=== PATIENT | female | born 1980 | race Two or more races ===

== ENCOUNTER 2017-01-21 15:31 | Emergency (ER) | payer MEDICAID ==
[2017-01-21 15:47] VITALS: BP 152/102
--- NOTE | 2017-01-21 16:17 | ED Physician Documentation ---
History of Present Illness - Stated complaint Stated Complaint: RT LE PAIN - Chief complaint Chief Complaint: Ext Problem - History obtained from History obtained from: Patient - History of Present Illness Timing: Other (About 9 months ago she had a fall and developed pain in the right low back radiating as a pulling sensation into the right hamstring area. This is been going on on and off ever since. She had nerve conduction studies that were normal per her. Pains been worse over the last few days after increased movement at home. 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 - Present Medications Home Medications: Ambulatory Orders Medication Instructions Recorded Confirmed Albuterol Sulfate [Proventil Hfa] 1 puffs PO DAILY 07/11/14 01/21/17 Cyclobenzaprine [Flexeril] 10 mg PO TID PRN #20 tablet 01/21/17 predniSONE [Deltasone] 20 mg PO [id number] #21 tab 01/21/17 - Allergies Allergies/Adverse Reactions: Allergies Allergy/AdvReac Type Severity Reaction Status Date / Time No Known Drug Allergies Allergy Verified 01/21/17 16:06 - Social History Does the pt smoke?: No Smoking Status: Never smoker Does the pt drink ETOH?: No Does the pt have substance abuse?: No PD ED PE NORMAL - Vitals Vital signs reviewed: Yes - General General: Alert and oriented X 3, No acute distress - Extremities Extremities: Other (Tender in the right sciatic notch, there is no tenderness of the leg itself. She is slightly diminished sensation over the right lateral calf compared to the left and a diminished but not absent Babinski reflex on the right.) - Neuro Neuro: Alert and oriented X 3, Normal speech - Psych Psych: Normal mood, Normal affect Results - Vitals Vitals: Vital Signs - 24 hr 01/21/17 15:45 Temperature 36.5 C Heart Rate 116 H Respiratory 18 Rate Blood Pressure 152/102 H O2 Saturation 100 Oxygen O2 Source Room air - Labs Labs: Laboratory Tests 01/21/17 16:18 POC Whole Bld Glucose 105 H PD MEDICAL DECISION MAKING - ED course ED course: She presents with signs and symptoms of a chronic lumbar radiculopathy on the right. No evidence of cauda equina or infection. Departure - Departure Disposition: 01 Home, Self Care Clinical Impression: Sciatica Condition: Good Record reviewed to determine appropriate education?: Yes Instructions: ED Sciatica Prescriptions: predniSONE [Deltasone] 20 mg PO [id number] #21 tab Cyclobenzaprine [Flexeril] 10 mg PO TID PRN #20 tablet PRN Reason: Pain Comments: Call your doctor to arrange a follow-up appointment, make the next available appointment. In the interim, return anytime if worse or if new symptoms develop. Your blood pressure was elevated today on check into the emergency department. This does not mean that you have hypertension, it is a common phenomenon to come to the emergency department and have elevated blood pressure. I recommend that she see her primary care physician within the week to have it rechecked when you are feeling better.
== END 2017-01-21 16:51 | disposition home or self-care (01) ==
LOC: ED 15:31
DX: M54.41 Lumbago with sciatica, right side (principal); R03.0 Elevated blood-pressure reading, without diagnosis of hypertension
CPT/HCPCS: 99283

== ENCOUNTER 2017-04-17 10:31 | Outpatient (CLI) | payer MEDICAID ==
--- NOTE | 2017-04-17 12:58 | XRAY Report ---
FOUR-VIEW LEFT KNEE: 04/17/2017 CLINICAL INDICATION: Pain. FINDINGS: AP, lateral, bilateral oblique views of the left knee demonstrate moderate osteoarthritis. There is no evidence of acute fracture or dislocation. No effusion is present. IMPRESSION: MODERATE OSTEOARTHRITIS. JOB #: [id number] EXT JOB #:[id number]
== END 2017-04-17 10:32 | disposition home or self-care (01) ==
LOC: DI.S 10:31
PROVIDERS: ATTEND Nurse Practitioner Family
DX: M17.12 Unilateral primary osteoarthritis, left knee (principal)

== ENCOUNTER 2017-07-28 15:05 | Outpatient (CLI) | payer MEDICAID ==
--- NOTE | 2017-07-28 22:19 | MRI Report ---
EXAM: LEFT KNEE MRI WITHOUT CONTRAST EXAM DATE: 07/28/2017 04:49 PM. CLINICAL HISTORY: Left knee pain and swelling. COMPARISON: Left knee radiography from 04/17/2017. TECHNIQUE: Multiplanar, multisequence T1-weighted and fluid-sensitive sequences of the knee without c ontrast. Other: None. FINDINGS: Exam is technically limited due to patient imaging characteristics. Bones and articular cartilage: Marginal osteophytes at the femoral condyles, tibial plateau, and tsai lla. Grade 3-4 chondromalacia at the medial femoral condyle. Subchondral marrow edema at the central aspect of the medial femoral condyle. Grade 3-4 chondromalacia at the medial tibial plateau. Focal fu ll-thickness articular cartilage defect at the lateral tibial plateau. Grade 2 chondromalacia at the lateral femoral condyle. Small 3 mm focus of articular cartilage delamination injury at the lateral p atellar facet. Focal grade 3 chondromalacia at the femoral trochlear groove. No patellar subluxation. Medial Meniscus: There is a vertically-oriented extensive radial tear at the lateral margin of the po sterior horn medial meniscus and extending into the posterior meniscal root ligament. Degenerative fr ee edge fraying of the medial meniscus. The medial meniscal body is partially extruded medially from the medial joint compartment. Degenerative signal throughout the medial meniscus. Lateral Meniscus: The lateral meniscus is intact. Cruciate Ligaments: The anterior and posterior cruciate ligaments are intact. Collateral Ligaments: The medial collateral and lateral collateral ligamentous structures are intact. Tendons: The quadriceps, patellar, semimembranosus, and popliteus tendons are unremarkable. Musculature: No edema or fatty atrophy. Other: Small to moderate-sized joint effusion. Small ganglion or synovial cyst adjacent to the distal end of the semimembranosus tendon. No Liang's cyst. No loose bodies. The medial and lateral retinac glen are intact. The subcutaneous tissues and fat pads are unremarkable. IMPRESSION: 1. Tricompartmental osteoarthritis which is most significant at the medial compartment. 2. Vertically-oriented, extensive radial tear at the lateral margin of the posterior horn medial meni scus and extending into the posterior meniscal root ligament. Degenerative free edge fraying and dege nerative intrasubstance signal throughout the medial meniscus. The medial meniscal body is partially extruded medially from the medial joint compartment. Small to moderate-sized joint effusion. 3. Small ganglion or synovial cyst adjacent to the distal end of the semimembranosus tendon. [facility] Referring Provider Line: [phone] SITE ID: [id number]
== END 2017-07-28 15:06 | disposition home or self-care (01) ==
LOC: DI 15:05
PROVIDERS: ATTEND Orthopaedic Surgery
DX: M17.12 Unilateral primary osteoarthritis, left knee (principal); S83.242A Other tear of medial meniscus, current injury, left knee, initial encounter; M25.462 Effusion, left knee

== ENCOUNTER 2017-11-30 16:29 | Emergency (ER) | payer MEDICAID ==
[2017-11-30] MEDS ORDERED: KETOROLAC 60 MG/2 ML VIAL IM STA (17:06)
--- NOTE | 2017-11-30 17:16 | ED Physician Documentation ---
PD HPI BACK PAIN - Stated complaint Stated Complaint: BK PX - Chief complaint Chief Complaint: Back Pain - History obtained from History obtained from: Patient - History of Present Illness Timing - onset: How many months ago (several) Timing - details: Waxing and waning Location: Lower Quality: Pain, Similar to prior episodes Associated symptoms: No: Fever, Weakness, Numbness, Incontinent of urine Worsened by: Movement Recently seen: Clinic (Was seen in Ortho Clinic two days ago.) - Additional information Additional information: The patient is a 37-year-old female who presents with low back pain that has been waxing and waning for the past several months. She describes it as "tight " with tingling in her legs, and pulling of the muscles in her legs. She denies fever, numbness, weakness, or urinary incontinence. She reports history of falling in April 2017, and has had back pain and left knee pain since that time. She has been seeing orthopedics and has received a cortisone injection for her left knee pain. She was seen in orthopedic clinic 2 days ago and states she is being referred to a business taxes specialist. 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 - Present Medications Home Medications: Ambulatory Orders Medication Instructions Recorded Confirmed Naproxen [Naprosyn] 500 mg PO BID PRN #30 tablet 11/30/17 - Allergies Allergies/Adverse Reactions: Allergies Allergy/AdvReac Type Severity Reaction Status Date / Time No Known Drug Allergies Allergy Verified 11/30/17 16:35 - Social History Does the pt smoke?: No Smoking Status: Never smoker Does the pt drink ETOH?: No Does the pt have substance abuse?: Yes Substance Use and Type: Marijuana - Immunizations Immunizations are current?: Yes PD ED PE NORMAL - Vitals Vital signs reviewed: Yes (hypertensive) - General General: Alert and oriented X 3, Other (Morbidly obese.) - HEENT HEENT: Atraumatic, Moist mucous membranes - Neck Neck: No bony TTP, No JVD - Cardiac Cardiac: RRR, No murmur - Respiratory Respiratory: No respiratory distress, Clear bilaterally - Abdomen Abdomen: Soft, Non tender - Back Back: No CVA TTP, No spinal TTP, Other (Tenderness to palpation in the paralumbar musculature bilaterally.) - Derm Derm: No rash - Extremities Extremities: No calf tenderness / cord, Other (Wearing a compression wrap around the left knee. It is difficult to determine if there is swelling of the leg due to the girth of her legs. There is no appreciable difference from right to left.) - Neuro Neuro: Alert and oriented X 3, No motor deficit, No sensory deficit Results - Vitals Vitals: Oxygen O2 Source Room air PD MEDICAL DECISION MAKING - ED course Complexity details: reviewed old records, re-evaluated patient, considered differential, d/w patient ED course: The patient's presentation is consistent with acute exacerbation of chronic low back pain. There is no evidence of neurologic deficit on physical examination, and her presentation does not suggest spinal stenosis, epidural abscess, or cauda equina syndrome. Treatment in the emergency department included administration of ketorolac 60 mg IM. The patient reported improvement of her symptoms following this treatment. She is being discharged with prescription for Naprosyn. I discussed with her symptomatic treatment and outpatient follow- up, as well as potentially worrisome signs or symptoms that should prompt reevaluation in the emergency department. Departure - Departure Disposition: 01 Home, Self Care Clinical Impression: Low back pain Qualifiers: Back pain laterality: bilateral Sciatica presence: unspecified whether sciatica present Condition: Stable Instructions: ED Low Back Pain Injury Follow-Up: Misty Little ARNP [Primary Care Provider] - Prescriptions: Naproxen [Naprosyn] 500 mg PO BID PRN #30 tablet PRN Reason: Pain Comments: Apply ice pack to your lower back intermittently for the next 3 or 4 days. You can use Naprosyn as prescribed if needed for pain. Follow up with your primary physician within 2 weeks. Continue to follow-up with orthopedics as planned. Return to the emergency department if you develop increasing pain, urinary incontinence, or otherwise worsening symptoms. Discharge Date/Time: 11/30/17 18:04
[2017-11-30 17:51] VITALS: BP 136/82
== END 2017-11-30 18:04 | disposition home or self-care (01) ==
LOC: ED 16:29
DX: M54.5 Low back pain (principal); G89.29 Other chronic pain; M25.562 Pain in left knee; E66.01 Morbid (severe) obesity due to excess calories; Z68.43 Body mass index [BMI] 50.0-59.9, adult
CPT/HCPCS: 96372; 99283

== ENCOUNTER 2017-12-05 06:08 | Emergency (ER) | payer MEDICAID ==
[2017-12-05] MEDS ORDERED: DEXAMETHASONE 10 MG/ML VIAL IM STA (06:16)
[2017-12-05] MEDS ORDERED: KETOROLAC 60 MG/2 ML VIAL IM STA (06:16)
[2017-12-05] MEDS ORDERED: CYCLOBENZAPRINE 10 MG TABLET PO STA (06:16)
--- NOTE | 2017-12-05 06:19 | ED Physician Documentation ---
PD HPI BACK PAIN - Stated complaint Stated Complaint: LOWER BACK PX - Chief complaint Chief Complaint: Back Pain - History obtained from History obtained from: Patient, Family - History of Present Illness Timing - onset: Chronic Timing - duration: Months Timing - details: Gradual onset Pain level max: 10 Pain level now: 10 Location: Lower, Left Quality: Pain, Spasm, Sharp, Similar to prior episodes Associated symptoms: No: Fever, Weakness, Numbness, Incontinent of urine, Unable to urinate, Hematuria, Incontinent of stool Improves with: Rest Worsened by: Movement Contributing factors: No: Anticoagulated, Cancer, IVDA Similar symptoms before: Diagnosis (back pain, "possible pinched nerve") Recently seen: Other (seen here 5 days ago, rx naproxen but has not filled it yet. Seen at [facility] days ago and given oxycodone, states not helping. States is being referred to a digital campaign specialist.) Review of Systems Constitutional: denies: Fever, Chills Ears: denies: Ear pain Nose: denies: Rhinorrhea / runny nose, Congestion Throat: denies: Sore throat Cardiac: denies: Chest pain / pressure Respiratory: denies: Cough GI: denies: Abdominal Pain, Nausea, Vomiting, Diarrhea : denies: Dysuria, Frequency, Hesitancy, Incontinent, Now EGA Skin: denies: Rash Musculoskeletal: denies: Neck pain Neurologic: denies: Focal weakness, Numbness PD PAST MEDICAL HISTORY - Past Medical History Past Medical History: Yes Respiratory: Asthma Psych: Depression, Anxiety Musculoskeletal: Chronic back pain - Past Surgical History 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, 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 - Present Medications Home Medications: Ambulatory Orders Medication Instructions Recorded Confirmed Naproxen [Naprosyn] 500 mg PO BID PRN #30 tablet 11/30/17 12/05/17 Cyclobenzaprine HCl 1 tab PO TID PRN 12/05/17 12/05/17 Cyclobenzaprine [Flexeril] 10 mg PO TID PRN #20 tablet 12/05/17 Meloxicam 7.5 mg PO DAILY PRN 12/05/17 12/05/17 predniSONE [Deltasone] 10 mg PO [id number] #42 tab 12/05/17 - Allergies Allergies/Adverse Reactions: Allergies Allergy/AdvReac Type Severity Reaction Status Date / Time No Known Drug Allergies Allergy Verified 12/05/17 06:16 - Social History Does the pt smoke?: No Smoking Status: Never smoker Does the pt drink ETOH?: No Does the pt have substance abuse?: Yes - Immunizations Immunizations are current?: Yes PD ED PE NORMAL - Vitals Vital signs reviewed: Yes - General General: Alert and oriented X 3, Other (morbidly obese female. tearful. ) - HEENT HEENT: Moist mucous membranes - Neck Neck: Supple, no meningeal sign - Cardiac Cardiac: RRR - Respiratory Respiratory: No respiratory distress, Clear bilaterally - Abdomen Abdomen: Soft, Non tender, Non distended - Back Back: No spinal TTP, Other (No midline tenderness to palpation or percussion. No spasm felt.) - Derm Derm: Warm and dry - Extremities Extremities: Normal ROM s pain, No edema, No calf tenderness / cord, Other ( normal bilateral lower extremity patellar and ankle jerk reflexes. Normal great toe extension bilaterally) - Neuro Neuro: Alert and oriented X 3, No motor deficit, No sensory deficit Results - Vitals Vitals: Vital Signs - 24 hr 12/05/17 12/05/17 06:12 06:40 Temperature 36.6 C Heart Rate 66 84 Respiratory 24 18 Rate Blood Pressure 137/107 H 118/59 L O2 Saturation 97 98 Oxygen O2 Source Room air PD MEDICAL DECISION MAKING - ED course Complexity details: reviewed old records, re-evaluated patient, considered differential (no cauda equina, no spinal epidural abscess, no fracture, no aortic dissection or evidence of aneursym rupture), d/w patient ED course: Patient is a 37-year-old female who presents to the emergency department with acute on chronic back pain. Has not filled her prescriptions from her prior ED visit. Feels better after Toradol, Flexeril and dexamethasone here. Will place on a steroid taper to see if this improves her symptoms. We will also prescribe a muscle relaxant for home. She denies taking any other medications and denies any allergies to medications. Will have her follow-up with her doctor for further evaluation and care. No evidence of cauda equina, epidural abscess or fracture. Patient counseled regarding signs and symptoms for which I believe and urgent re-evaluation would be necessary. Patient with good understanding of and agreement to plan and is comfortable going home at this time This document was made in part using voice recognition software. While efforts are made to proofread this document, sound alike and grammatical errors may occur. Departure - Departure Disposition: 01 Home, Self Care Clinical Impression: Low back pain Qualifiers: Chronicity: acute Back pain laterality: left Sciatica presence: without sciatica Qualified Code(s): M54.5 - Low back pain Condition: Good Instructions: ED Sprain Strain Lumbar Follow-Up: Misty Little ARNP [Primary Care Provider] - Within 1 week Prescriptions: Cyclobenzaprine [Flexeril] 10 mg PO TID PRN #20 tablet PRN Reason: Spasms predniSONE [Deltasone] 10 mg PO [id number] #42 tab Comments: Fill the medications as previously prescribed. Follow up with your doctor for further care. Return if you worsen.
[2017-12-05 07:15] VITALS: BP 120/60
== END 2017-12-05 07:15 | disposition home or self-care (01) ==
LOC: ED 06:08
DX: M54.5 Low back pain (principal); G89.29 Other chronic pain; E66.01 Morbid (severe) obesity due to excess calories
CPT/HCPCS: 96372; 99283; A9270

== ENCOUNTER 2017-12-10 12:52 | Outpatient (CLI) | payer MEDICAID ==
--- NOTE | 2017-12-11 15:25 | MRI Report ---
EXAM: MRI LUMBAR SPINE WITHOUT CONTRAST EXAM DATE: 12/10/2017 01:36 PM. CLINICAL HISTORY: Back pain, lumbar, with radiculopathy. Low back pain radiating around the left late ral area into the left calf. COMPARISON: Lumbar spine plain films 07/15/2015. TECHNIQUE: Multiplanar, multisequence T1-weighted and fluid-sensitive sequences of the lumbar spine f rom T12 to S1 without contrast. Other: None. FINDINGS: Spinal Cord: The conus terminates at T12-L1. Soft tissue mass is seen within the anterior spinal canal in the midline and to the left of midline. This extends from the T12-L1 level through the L2 inferior endplate. This measures 60 x 10 x 13 mm. T he lesion demonstrates subtle mild decreased T1 and increased T2/STIR signal relative to the spinal c ord. Mass effect on the conus medullaris and proximal cauda equina nerve roots is seen. Cauda equina nerve roots are displaced posteriorly and to the right. The mass appears to remain within the thecal sac, not exiting with nerve roots. Caudal to this, cauda equina nerve roots within the lower lumbar thecal sac are unremarkable. Alignment: No scoliosis or spondylolisthesis. Bone Marrow: A transitional vertebrae is seen at the lumbosacral junction. This is consistent with pa rtial lumbarization of S1 bilaterally. Hypoplastic S1-S2 vertebral disk level and facet joints are pr esent. No gross fractures or bone lesions. No bone marrow edema. Note is made of a small, 5 mm, heman gioma superiorly in the T12 vertebral body. Disk Levels/Facets: T11-T12: Evaluated on sagittal series. Mild dorsal and ventral disk bulge is seen. Effacement of the thecal sac is noted. Mild central canal stenosis. T12-L1: Unremarkable. L1-L2: Unremarkable. L2-L3: Unremarkable. L3-L4: Unremarkable. L4-L5: Unremarkable. Mild degenerative facet change. L5-S1: Moderate degenerative facet change is seen. Effacement of exiting left L5 nerve root within th e foramen is seen, with mild foraminal stenosis. Musculature: Normal. No edema or fatty atrophy. Other: The partially visualized retroperitoneum is unremarkable. IMPRESSION: 1. 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 This demonstrates isoin tense to slightly hypointense T1 signal. T2/STIR signal is mildly hyperintense to brain parenchyma. T he mass extends from T12-L1 through the L2 inferior endplate level. Mass measures 60 x 10 x 13 mm bebeto tered in the anterior thecal sac to the left of midline. Mass effect on the tip of the conus medullar is and proximal cauda equina nerve roots is seen. Differential considerations would include neoplasm such as myxopapillary ependymoma, nerve sheath tumor, metastatic disease, and meningioma. Further brendon luation with postcontrast MRI of the lumbar spine would be of value. Additionally screening of the ne ural axis with MRI of the brain, cervical spine, and thoracic spine without and with contrast would b e of value. 2. Transitional vertebrae is seen at the lumbosacral junction. This is consistent with partial lumbar ization of S1. 3. Mild scattered spondylosis. -T11-T12: Mild central canal stenosis. -L4-L5: Mild degenerative facet change. -L5-S1: Moderate degenerative facet change. Left mild foraminal stenosis. Critical result: The findings are discussed with referring physician, Dr. Kristine Ruiz, on 12/11/2017 at 1451 hrs. [facility] Referring Provider Line: [phone] SITE ID: [id number]
== END 2017-12-10 12:53 | disposition home or self-care (01) ==
LOC: DI 12:52
PROVIDERS: ATTEND Orthopaedic Surgery
DX: M54.16 Radiculopathy, lumbar region (principal); M48.9 Spondylopathy, unspecified
CPT/HCPCS: 72148

== ENCOUNTER 2017-12-15 12:45 | Emergency (ER) | payer MEDICAID ==
[2017-12-15] MEDS ORDERED: MORPHINE 10 MG/ML VIAL IM STA (13:42)
--- NOTE | 2017-12-15 13:45 | ED Physician Documentation ---
PD HPI BACK PAIN - Stated complaint Stated Complaint: LOW BACK/L LEG PX - Chief complaint Chief Complaint: Back Pain - History obtained from History obtained from: Patient - History of Present Illness Timing - onset: How many weeks ago (several weeks) Timing - duration: Weeks (several weeks ago) Timing - details: Gradual onset Pain level max: 8 Pain level now: 8 Location: Mid, Lower, Right, Left Quality: Pain, Spasm, Similar to prior episodes Associated symptoms: No: Fever, Weakness, Numbness, Incontinent of urine, Unable to urinate, Hematuria Improves with: Rest Worsened by: Movement Similar symptoms before: Diagnosis (MRI recently showed a mass in the spinal column.) Recently seen: Clinic (orthopedics recently) - Additional information Additional information: States continued pain and her pain medications are not helping. 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 - Present Medications Home Medications: Ambulatory Orders Medication Instructions Recorded Confirmed Naproxen [Naprosyn] 500 mg PO BID PRN #30 tablet 11/30/17 12/05/17 Cyclobenzaprine HCl 1 tab PO TID PRN 12/05/17 12/05/17 Cyclobenzaprine [Flexeril] 10 mg PO TID PRN #20 tablet 12/05/17 Meloxicam 7.5 mg PO DAILY PRN 12/05/17 12/05/17 predniSONE [Deltasone] 10 mg PO [id number] #42 tab 12/05/17 Hydrocodone/Acetaminophen 1 - 2 each PO Q6H PRN #14 tablet 12/15/17 [Hydrocodon-Acetaminophen 5-325] - Allergies Allergies/Adverse Reactions: Allergies Allergy/AdvReac Type Severity Reaction Status Date / Time No Known Drug Allergies Allergy Verified 12/15/17 12:59 - Social History Does the pt smoke?: No Smoking Status: Never smoker Does the pt drink ETOH?: No Does the pt have substance abuse?: Yes - Immunizations Immunizations are current?: Yes PD ED PE NORMAL - Vitals Vital signs reviewed: Yes - General General: Alert and oriented X 3, Other (appears in pain) - HEENT HEENT: Moist mucous membranes, Pharynx benign - Neck Neck: Supple, no meningeal sign, No bony TTP - Cardiac Cardiac: RRR - Respiratory Respiratory: No respiratory distress, Clear bilaterally - Abdomen Abdomen: Soft, Non tender, Non distended - Back Back: No spinal TTP, Other (No midline tenderness palpation. Paraspinal tenderness bilaterally) - Derm Derm: Warm and dry - Extremities Extremities: Other (normal bilateral lower extremity patellar and ankle jerk reflexes. Normal great toe extension bilaterally) - Neuro Neuro: Alert and oriented X 3, No motor deficit, No sensory deficit (No saddle anesthesia) Results - Vitals Vitals: Vital Signs - 24 hr 12/15/17 12/15/17 12:53 14:52 Temperature 37 C Heart Rate 108 H 104 H Respiratory 20 16 Rate Blood Pressure 148/93 H 130/67 O2 Saturation 94 97 Oxygen O2 Source Room air PD MEDICAL DECISION MAKING - ED course Complexity details: reviewed old records (Recent MRI), re-evaluated patient, considered differential (no cauda equina, no spinal epidural abscess, no fracture, no aortic dissection or evidence of aneursym rupture), d/w patient ED course: Patient is a 37-year-old female presents to the emergency department with chronic back pain. Pain is not well controlled with her medications at home. She was given pain medications in the emergency department and does feel significantly better. She is scheduled to have a repeat MRI after the results of her last MRI. She has also been referred to [facility] for further care. She is comfortable with increasing her pain medication at home and following up closely with her doctor. No neurological deficits. Patient counseled regarding signs and symptoms for which I believe and urgent re-evaluation would be necessary. Patient with good understanding of and agreement to plan and is comfortable going home at this time This document was made in part using voice recognition software. While efforts are made to proofread this document, sound alike and grammatical errors may occur. - Sepsis Event Vital Signs: Vital Signs - 24 hr 12/15/17 12/15/17 12:53 14:52 Temperature 37 C Heart Rate 108 H 104 H Respiratory 20 16 Rate Blood Pressure 148/93 H 130/67 O2 Saturation 94 97 Oxygen O2 Source Room air Departure - Departure Disposition: 01 Home, Self Care Clinical Impression: Low back pain Qualifiers: Chronicity: acute Back pain laterality: bilateral Sciatica presence: without sciatica Qualified Code(s): M54.5 - Low back pain Condition: Good Instructions: ED Low Back Pain Injury Follow-Up: Misty Little ARNP [Primary Care Provider] - Within 3 Days Kristine Ruiz MD [Provider Admit Priv/Credential] - Within 3 Days Prescriptions: Hydrocodone/Acetaminophen [Hydrocodon-Acetaminophen 5-325] 1 - 2 each PO Q6H PRN #14 tablet PRN Reason: pain Comments: It is very important that you follow-up with your doctor and orthopedics for further care and to ensure that you receive your next MRI urgently. Return if you worsen. Do not drink alcohol or drive while on narcotic pain medicine. Note that many narcotic pain relievers also contain tylenol/acetaminophen. Please ensure that your total dose of acetaminophen from all sources does not exceed 3 grams (3000mg) per day. You may constipated on this medication, take a stool softener such as "Colace" twice a day while you are on it. Also recommend a otcc-ncz-ngequen laxative such as senna or MiraLAX any day that you do not have a bowel movement. If you received narcotic pain medication in the emergency department, do not drive or operate machinery for the next 24 hours. Discharge Date/Time: 12/15/17 14:52
[2017-12-15] MEDS ORDERED: HYDROcod/ACETAM 5/325 MG TABLET PO STA (14:38)
[2017-12-15] MEDS ORDERED: diazePAM 5 MG TABLET PO STA (14:38)
[2017-12-15 14:53] VITALS: BP 130/67
== END 2017-12-15 14:52 | disposition home or self-care (01) ==
LOC: ED 12:45
DX: M54.5 Low back pain (principal)
CPT/HCPCS: 96372; 99283; A9270

== ENCOUNTER 2017-12-18 08:00 | Outpatient (CLI) | payer MEDICAID ==
[2017-12-18 13:30] LABS: CREATININE 0.5 mg/dL (0.4-1.0)
== END 2017-12-18 08:01 ==
LOC: LAB.WCP 08:00
PROVIDERS: ATTEND Nurse Practitioner Family
DX: Z01.812 Encounter for preprocedural laboratory examination (principal)
CPT/HCPCS: 36415; 82565

== ENCOUNTER 2018-01-01 20:59 | Emergency (ER) | payer MEDICAID ==
--- NOTE | 2018-01-01 22:42 | ED Physician Documentation ---
PD HPI BACK PAIN - Stated complaint Stated Complaint: BACK/LT LEG PX - Chief complaint Chief Complaint: Back Pain - History obtained from History obtained from: Patient - History of Present Illness Timing - onset: How many weeks ago (several weeks ago) Timing - duration: Weeks Timing - details: Still present, Constant, Waxing and waning Pain level now: 8 Location: Lower, Left Quality: Pain, Spasm Associated symptoms: Numbness (episodic right inguinal numbness). No: Fever, Weakness, Incontinent of urine, Unable to urinate, Incontinent of stool Improves with: Rest, Position Worsened by: Movement Similar symptoms before: Work up / diagnostics (MRI earlier this month revealed soft tissue mass within anterior spinal canal T12-L1 with mass effect on conus medullaris and proximal cauda equina nerve roots) Recently seen: Emergency Dept - Additional information Additional information: c/o worsening low back pain since earlier today. She has had similar back pain for several weeks and had MRI earlier this month with findings as noted above. She has ibuprofen and meloxicam but inadequate relief with these. She has run out of hydrocodone. Has MRI with contrast scheduled for tomorrow. Also notes LLE swelling x few days Review of Systems Constitutional: denies: Fever, Chills, Sweats : denies: Unable to Void, Incontinent Musculoskeletal: reports: Back pain, Extremity swelling Neurologic: reports: Numbness (episodic right inguinal numbness earlier today, but resolved at time of this H+P). 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 - Present Medications Home Medications: Ambulatory Orders Medication Instructions Recorded Confirmed Naproxen [Naprosyn] 500 mg PO BID PRN #30 tablet 11/30/17 12/05/17 Cyclobenzaprine [Flexeril] 10 mg PO TID PRN #20 tablet 12/05/17 Hydrocodone/Acetaminophen 1 - 2 each PO Q6HR PRN #14 tablet 01/02/18 [Hydrocodon-Acetaminophen 5-325] diazePAM [Valium] 5 mg PO TID PRN #15 tablet 01/02/18 - Allergies Allergies/Adverse Reactions: Allergies Allergy/AdvReac Type Severity Reaction Status Date / Time No Known Drug Allergies Allergy Verified 01/02/18 08:34 - Social History Does the pt smoke?: No Smoking Status: Never smoker Does the pt drink ETOH?: No Does the pt have substance abuse?: Yes Substance Use and Type: Marijuana - Immunizations Immunizations are current?: Yes - POLST Patient has POLST: No PD ED PE NORMAL - Vitals Vital signs reviewed: Yes - General General: Alert and oriented X 3, Well developed/nourished (obese), Other ( appears to be in painful distress, tearful at times. standing at bedside (says pain sometimes worse with lying down, but that if she finds a comfortable position lying down, it is very difficult to stand back up and thus she prefers to stand at this time)) - Back Back: No spinal TTP - Derm Derm: Normal color, Warm and dry - Extremities Extremities: No edema - Neuro Neuro: No motor deficit, No sensory deficit Results - Vitals Vitals: Vital Signs - 24 hr 01/01/18 01/02/18 01/02/18 21:09 01:23 01:27 Temperature 36.8 C Heart Rate 122 H 100 98 Respiratory 20 15 16 Rate Blood Pressure 155/120 H 98/46 L 118/72 O2 Saturation 100 98 98 Oxygen O2 Source Room air PD MEDICAL DECISION MAKING - ED course Complexity details: reviewed old records, reviewed results, re-evaluated patient , considered differential, d/w patient - Sepsis Event Vital Signs: Vital Signs - 24 hr 01/01/18 01/02/18 01/02/18 21:09 01:23 01:27 Temperature 36.8 C Heart Rate 122 H 100 98 Respiratory 20 15 16 Rate Blood Pressure 155/120 H 98/46 L 118/72 O2 Saturation 100 98 98 Oxygen O2 Source Room air Departure - Departure Disposition: 01 Home, Self Care Clinical Impression: Sciatica Qualifiers: Laterality: left Qualified Code(s): M54.32 - Sciatica, left side Condition: Good Instructions: ED Sciatica Follow-Up: Misty Little ARNP [Primary Care Provider] - Prescriptions: Hydrocodone/Acetaminophen [Hydrocodon-Acetaminophen 5-325] 1 - 2 each PO Q6HR PRN #14 tablet PRN Reason: Pain diazePAM [Valium] 5 mg PO TID PRN #15 tablet PRN Reason: Spasms Discharge Date/Time: 01/02/18 01:41
[2018-01-01] MEDS: HYDROmorphone 1 MG/ML CARPUJECT IM STA (23:26)
[2018-01-01] MEDS: diazePAM 5 MG TABLET PO STA (23:26)
--- NOTE | 2018-01-02 00:30 | Ultrasound Report ---
Procedure Date: 01/01/2018 Accession Number: [id number] / [id number] Procedure: US - Duplex Ext Veins Left CPT Code: FULL RESULT: EXAM: LEFT LOWER EXTREMITY VENOUS ULTRASOUND EXAM DATE: 01/01/2018 11:38 PM. CLINICAL HISTORY: Left leg swelling without injury. COMPARISON: None. TECHNIQUE: Real-time sonographic vascular imaging was performed by the food sampler through the lower extremity utilizing both color-flow and Doppler spectral analysis. Multiple lead generation representative static images were saved for review. FINDINGS: Common Femoral Vein (CFV): Normal. CFV-GSV Junction: Normal. Profunda Femoral Vein (PFV): Normal. Femoral Vein (FV) Prox: Normal. Femoral Vein (FV) Mid: Normal. Femoral Vein (FV) Dist: Normal. Popliteal Vein: Normal. Posterior Tibial Veins: Normal where seen. Peroneal Veins: Normal where seen. Other: None. IMPRESSION: No evidence for left leg deep venous thrombosis. RADIA
[2018-01-02 01:28] VITALS: BP 118/72
[2018-01-02] MEDS: HYDROcod/ACETAM 5/325 MG TABLET PO STA (01:40)
== END 2018-01-02 01:41 | disposition home or self-care (01) ==
LOC: ED 20:59
DX: M54.32 Sciatica, left side (principal); G89.29 Other chronic pain
CPT/HCPCS: 93971; 96372; 99283; A9270; J1170

== ENCOUNTER 2018-01-02 08:03 | Outpatient (CLI) | payer MEDICAID ==
[~2018-01-02 08:03] MED LIST: GADOBUTROL 10 MMOL/10 ML VIAL ONE
[2018-01-02] MEDS ORDERED: GADOBUTROL 15 MMOL/15 ML VIAL ONE (10:55)
--- NOTE | 2018-01-02 15:41 | MRI Report ---
Procedure Date: 01/02/2018 Accession Number: [id number] / [id number] Procedure: MRI - Lumbar Spine W/WO CPT Code: FULL RESULT: EXAM: MRI LUMBAR SPINE WITHOUT AND WITH CONTRAST EXAM DATE: 01/02/2018 11:24 AM. CLINICAL HISTORY: 37-year-old female. BACK PAIN, LUMBAR, WITH RADICULOPATHY. COMPARISONS: MR lumbar spine 12/10/2017. TECHNIQUE: Multiplanar, multisequence T1-weighted and fluid-sensitive sequences of the lumbar spine from T12 to S1 before and after administration of intravenous contrast. Other: None. IV contrast: 13.5 mL Gadavist. FINDINGS: Neurologic structures/central canal: This is a follow-up contrast-enhanced study to better assess the lesion seen in the lumbar central canal. The conus terminates at L1 level Conus medullaris is unremarkable. 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 The maximal craniocaudal extent is approximately 6.1 cm., Which is similar to prior study. Transversely the lesion fills the central canal with maximal dimensions approximately 13 x 11 mm (series 601 image 10). On postcontrast sequences the lesion enhances primarily peripherally with a more confluent area of enhancement along its superior margin (for example series 901 image 17). No other abnormal enhancement in the visualized portion of the spine. Alignment: No scoliosis or spondylolisthesis. Bone Marrow: Transitional lumbosacral anatomy is again noted to partially lumbarized S1. No gross fractures or bone lesions. No bone marrow edema or abnormal enhancement. Disk Levels/Facets: T12-L1: No significant central canal or foraminal narrowing. L1-L2: Moderate disk desiccation. Mild diffuse disk bulge. Severe central canal narrowing from the mass which nearly completely obliterates the central canal. No foraminal narrowing. L2-L3: Severe central canal narrowing from the mass which nearly completely obliterates the central canal. No foraminal narrowing. L3-L4: No significant central canal or foraminal narrowing. L4-L5: No significant central canal narrowing. Mild bilateral foraminal narrowing. L5-S1: Transitional level. No significant central canal narrowing. Moderate bilateral foraminal narrowing. Spinal Canal: No enhancing masses within the spinal canal. No epidural abscess. Musculature: Normal. No edema, abnormal enhancement, or fatty atrophy. Other: The visualized retroperitoneum is unremarkable. IMPRESSION: 1. This is a follow-up contrast-enhanced study to better assess the lesion seen in the lumbar central canal. Redemonstration circumscribed, well-defined intradural extramedullary mass nearly filling upper lumbar spinal canal from mid L1 level to L2-L3 level. The maximal craniocaudal extent is approximately 6.1 cm, similar to prior study. Transversely the lesion fills the central canal with maximal dimensions approximately 13 x 11 mm (series 601 image 10). On postcontrast sequences, the lesion enhances primarily only peripherally with a more confluent area of enhancement along its superior margin (for example series 901 image 17). Given this minimal enhancement primary differential considerations are likely myxopapillary ependymoma, which typically would enhance more homogeneously, however may have undergone partial cystic degeneration, and schwannoma, also possibly with cystic degeneration, and paraganglioma. Less likely but not entirely excluded are meningioma and intradural metastasis, both of which would be expected to enhance more avidly.. 2. No other abnormal enhancement in the visualized portion of the spine. Comment: The following findings are so common in adults without low back pain that while we report their presence, they must be interpreted with caution and in the context of the clinical situation. (Reference Stellak et al, Spine 2001) Prevalence of findings in patients without low back pain: Disk degeneration (any evidence): 92% Disk desiccation/T2 signal loss: 83% Disk height loss: 56% Disk bulge: 64% Disk protrusion: 32% Annular tear/high intensity zone: 38% RADIA
== END 2018-01-02 08:04 | disposition home or self-care (01) ==
LOC: DI 08:03
PROVIDERS: ATTEND Orthopaedic Surgery
DX: M48.9 Spondylopathy, unspecified (principal); M51.36 Other intervertebral disc degeneration, lumbar region
CPT/HCPCS: 72158

== ENCOUNTER 2018-01-02 08:29 | Emergency (ER) | payer MEDICAID ==
[2018-01-02] MEDS ORDERED: DEXAMETHASONE 10 MG/ML VIAL IVP STA (08:57)
[2018-01-02] MEDS ORDERED: KETOROLAC 60 MG/2 ML VIAL IVP STA (08:57)
--- NOTE | 2018-01-02 09:01 | ED Physician Documentation ---
PD HPI BACK PAIN - Stated complaint Stated Complaint: BACK PX - Chief complaint Chief Complaint: Back Pain - History obtained from History obtained from: Patient - History of Present Illness Timing - onset: How many years ago (2 1/2) Timing - duration: Years (2+) Timing - details: Abrupt onset, Still present Location: Lower, Left Quality: Pain, Spasm, Sharp, Similar to prior episodes Associated symptoms: Other (pain in the left leg and monserrat horses on the left calf.). No: Fever, Weakness, Numbness, Incontinent of urine, Unable to urinate , Hematuria, Incontinent of stool Improves with: Rest, Position Worsened by: Movement Similar symptoms before: Diagnosis (mass in spinal cord) Recently seen: Clinic, Emergency Dept - Additional information Additional information: 37-year-old female with a 2 and half year history of low back pain radiating to the left leg has had a recent MRI about 3 weeks ago showing a mass in the spinal cord. She had a peak in her pain last night and came to the emergency department was treated for pain acutely she was not able to fill her prescription for pain medication and when she arrived this morning to get a follow-up MRI of her lumbar spine she was unable to sit in the scanner and was sent to the emergency department for pain control in order to perform the MRI. She does have an appointment to see a neurosurgeon and they are awaiting the results of the second MRI. She denies symptoms of cauda equina syndrome. She specifically denies difficulty with urine or bladder control and focuses on pain and spasm of the left lower extremity. She is most comfortable standing. Review of Systems Constitutional: reports: Fatigue. denies: Fever Eyes: denies: Decreased vision Ears: denies: Ear pain Nose: denies: Congestion Throat: denies: Sore throat Respiratory: denies: Cough GI: denies: Abdominal Pain, Nausea, Vomiting : denies: Dysuria, Frequency Skin: denies: Rash Musculoskeletal: reports: Back pain, Extremity pain. denies: Neck pain Neurologic: reports: Focal weakness, Numbness. 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 - Present Medications Home Medications: Ambulatory Orders Medication Instructions Recorded Confirmed Naproxen [Naprosyn] 500 mg PO BID PRN #30 tablet 11/30/17 12/05/17 Cyclobenzaprine [Flexeril] 10 mg PO TID PRN #20 tablet 12/05/17 Hydrocodone/Acetaminophen 1 - 2 each PO Q6HR PRN #14 tablet 01/02/18 [Hydrocodon-Acetaminophen 5-325] diazePAM [Valium] 5 mg PO TID PRN #15 tablet 01/02/18 - Allergies Allergies/Adverse Reactions: Allergies Allergy/AdvReac Type Severity Reaction Status Date / Time No Known Drug Allergies Allergy Verified 01/02/18 08:34 - Social History Does the pt smoke?: No Smoking Status: Never smoker Does the pt drink ETOH?: No Does the pt have substance abuse?: Yes - Immunizations Immunizations are current?: Yes - POLST Patient has POLST: No PD ED PE NORMAL - Vitals Vital signs reviewed: Yes (tachy and hypertensive ) - General General: Alert and oriented X 3, Well developed/nourished, Other (37 y/o female is standing in the room and appears uncomfortable. She is favoring the left leg. ) - HEENT HEENT: Atraumatic, PERRL, EOMI - Neck Neck: Supple, no meningeal sign - Respiratory Respiratory: No respiratory distress - Back Back: No CVA TTP, Other (There is mild tenderness to the lumbar spine ) - Derm Derm: Normal color, Warm and dry, No rash - Extremities Extremities: No deformity, No edema, Other (There is tenseness to the calf on the left side posteriorly consistent with acute spasm ) - Neuro Neuro: Alert and oriented X 3, campus administrator 2-12 intact, No motor deficit, No sensory deficit, Normal speech Eye Opening: Spontaneous Motor: Obeys Commands Verbal: Oriented GCS Score: 15 - Psych Psych: Normal mood, Normal affect Results - Vitals Vitals: Vital Signs - 24 hr 01/02/18 01/02/18 01/02/18 08:31 09:34 09:43 Temperature 36.4 C L Heart Rate 113 H 97 Respiratory 20 Rate Blood Pressure 147/119 H 153/84 H O2 Saturation 95 99 Oxygen O2 Source Room air PD MEDICAL DECISION MAKING - ED course Complexity details: reviewed old records, reviewed results, re-evaluated patient , considered differential, d/w patient ED course: 37-year-old female with a spinal cord mass is in the process of workup and referral and she is having a pain, crisis this morning and was unable to get into the MRI scanner and was sent to the emergency department for treatment. Here in the emergency department she is administered dexamethasone and Toradol intravenously with improvement in her pain. We will leave the IV in place and discharge her from the emergency department to follow-up with her MRI scan and the neurosurgeon. - Sepsis Event Vital Signs: Vital Signs - 24 hr 01/02/18 01/02/18 01/02/18 08:31 09:34 09:43 Temperature 36.4 C L Heart Rate 113 H 97 Respiratory 20 Rate Blood Pressure 147/119 H 153/84 H O2 Saturation 95 99 Oxygen O2 Source Room air Departure - Departure Disposition: 01 Home, Self Care Clinical Impression: Lumbar radiculopathy, acute, Spinal cord mass Condition: Stable Instructions: ED Sciatica Follow-Up: Misty Little ARNP [Primary Care Provider] - Comments: follow up this morning with the MRI and with the neurosurgeon following that. Discharge Date/Time: 01/02/18 10:19
[2018-01-02 09:44] VITALS: BP 153/84
[2018-01-02] MEDS ORDERED: HYDROcod/ACETAM 5/325 MG TABLET PO STA (10:01)
== END 2018-01-02 10:19 | disposition home or self-care (01) ==
LOC: ED 08:29
DX: M54.16 Radiculopathy, lumbar region (principal); G95.89 Other specified diseases of spinal cord; M51.36 Other intervertebral disc degeneration, lumbar region
CPT/HCPCS: 72158; 93971; 96372; 96374; 96375; 99283; A9270; J1170

== ENCOUNTER 2018-01-07 05:59 | Outpatient (CLI) | payer MEDICAID | END 2018-01-07 06:00 | disposition critical access hospital (66) | LOC: EMS 05:59 | PROVIDERS: ATTEND Surgery | DX: M54.5 Low back pain (principal); R20.0 Anesthesia of skin | CPT/HCPCS: A0425; A0429 ==

== ENCOUNTER 2018-01-07 06:18 | Emergency (ER) | payer MEDICAID ==
[2018-01-07] MEDS ORDERED: LIDOCAINE PATCH 5% TOP PRN (07:41)
[2018-01-07] MEDS ORDERED: DEXAMETHASONE 10 MG/ML VIAL PO STA (07:41)
--- NOTE | 2018-01-07 07:45 | ED Physician Documentation ---
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 measuring 6.1 cm X 13mm X 11 mm mass which is periph enhancing and per rad ddx includes ependymoma, schwannoma, paraganglioma, meningioma and mets (but abscess was not on the ddx) pt has appt with neursurg Dr valiente in [place] tomorrow taking motrin naproxen, meloxicam, hydrocodone, flexeril s sig relief also her left bam feel swollen and tight like a constant charley horse - hada duplex that was neg 7-10 d ago no CP or SOA Review of Systems Constitutional: denies: Fever Cardiac: denies: Chest pain / pressure Respiratory: denies: Dyspnea GI: denies: Abdominal Pain, Nausea, Vomiting : denies: Now EGA Musculoskeletal: reports: Back pain, Extremity pain, Extremity swelling Neurologic: denies: Focal weakness, Numbness Endocrine: denies: Easy bruising / bleeding Immunocompromised: denies: Immunocompromised PD PAST MEDICAL HISTORY - Past Medical History Respiratory: Asthma Psych: Depression, Anxiety Musculoskeletal: Chronic back pain - Past Surgical History 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, 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 - Present Medications Home Medications: Ambulatory Orders Medication Instructions Recorded Confirmed Naproxen [Naprosyn] 500 mg PO BID PRN #30 tablet 11/30/17 12/05/17 Cyclobenzaprine [Flexeril] 10 mg PO TID PRN #20 tablet 12/05/17 Hydrocodone/Acetaminophen 1 - 2 each PO Q6HR PRN #14 tablet 01/02/18 [Hydrocodon-Acetaminophen 5-325] diazePAM [Valium] 5 mg PO TID PRN #15 tablet 01/02/18 Crutch [Crutches] 1 each MC DAILY PRN #1 each 01/07/18 - Allergies Allergies/Adverse Reactions: Allergies Allergy/AdvReac Type Severity Reaction Status Date / Time No Known Drug Allergies Allergy Verified 01/07/18 06:26 - Social History Does the pt smoke?: No Smoking Status: Never smoker Does the pt drink ETOH?: No Does the pt have substance abuse?: Yes - Immunizations Immunizations are current?: Yes - POLST Patient has POLST: No PD ED PE NORMAL - Vitals Vital signs reviewed: Yes - Neck Neck: Supple, no meningeal sign - Cardiac Cardiac: RRR - Respiratory Respiratory: No respiratory distress, Clear bilaterally - Abdomen Abdomen: Soft, Non tender, Other (no pulsatile mass) - Back Back: No spinal TTP, Other (diffuse low back TTP and limited ROM but no focal bony pain redness swelling or warmth) - Extremities Extremities: Other (magen swelling, no erythema, no cord, TTP L calf, + pulses magen ) - Neuro Neuro: Other (hip flex and knee ext limited by back and leg pain, foot dorsi plantar great toe ext 5/5, nl sensation, denies saddle anesthesia, no conus, 1/ 4 patellar DTR magen, + SLR (leg hurts with and without SLR)) Results - Vitals Vitals: Vital Signs - 24 hr 01/07/18 01/07/18 01/07/18 06:21 09:35 09:54 Temperature 36.4 C L Heart Rate 115 H 107 H 111 H Respiratory 22 18 20 Rate Blood Pressure 152/105 H 156/126 H 168/110 H O2 Saturation 100 96 98 01/07/18 10:45 Temperature Heart Rate 109 H Respiratory 16 Rate Blood Pressure 159/95 H O2 Saturation 96 Oxygen O2 Source Room air - Labs Labs: Laboratory Tests 01/07/18 09:10 Urine Color YELLOW Urine Clarity HAZY Urine pH 7.0 Ur Specific Dunbar 1.010 Urine Protein NEGATIVE Urine Glucose (UA) NEGATIVE Urine Ketones NEGATIVE Urine Occult Blood NEGATIVE Urine Nitrite NEGATIVE Urine Bilirubin NEGATIVE Urine Urobilinogen 0.2 (NORMAL) Ur Leukocyte Esterase LARGE H Urine RBC 0-5 Urine WBC >25 H Ur Squamous Epith Cells MOD Squamous H Urine Bacteria Few Urine Trichomonas PRESENT H Ur Microscopic Review INDICATED Urine Culture Comments NOT INDICATED Urine HCG, Qual NEGATIVE - Rads (name of study) duplex Radiology: See rad report (no DVT) PD MEDICAL DECISION MAKING - ED course ED course: mass was first seen 12/10 MRi and again 01/02 MRI has neuro surg appt in less than 24 hr now no saddle anesthesia nl sensation, motor to both ext denies urinary retention and incont - seems reluctant to go to bathroom in ED 2/ 2 discomfort of moving to commode txed pain in ED and pt has meds at home for same emphasized importance of fup at neurosurg tomorrow and also not to combine NSAIDS - Sepsis Event Vital Signs: Vital Signs - 24 hr 01/07/18 01/07/18 01/07/18 06:21 09:35 09:54 Temperature 36.4 C L Heart Rate 115 H 107 H 111 H Respiratory 22 18 20 Rate Blood Pressure 152/105 H 156/126 H 168/110 H O2 Saturation 100 96 98 01/07/18 10:45 Temperature Heart Rate 109 H Respiratory 16 Rate Blood Pressure 159/95 H O2 Saturation 96 Oxygen O2 Source Room air Departure - Departure Disposition: 01 Home, Self Care Clinical Impression: Mass of spine Back pain Qualifiers: Back pain location: low back pain Chronicity: acute Back pain laterality: unspecified Sciatica presence: with sciatica Sciatica laterality: sciatica of left side Qualified Code(s): M54.42 - Lumbago with sciatica, left side Condition: Good Instructions: ED Sciatica Prescriptions: Crutch [Crutches] 1 each MC DAILY PRN #1 each PRN Reason: severe back pain Comments: Your MRI scans showed a large mass in your lumbar spine It is critically important that you see the neurosurgeon tomorrow - do not miss that appointment - be sure to take copies of your MRI scans so there is no delay in your care The medication given in the ED as well as the pain meds you have at home should help get your through one more day If worse (fever, numbness, unable to move legs, leaking urine or unable to urinate) call the neurosurgeon right away and /or come back to the ER There was no blood clot in your leg - I think the cramping pain is from a compressed nerve. Only take one NSAID - either motrin/ibuprofen OR naproxen OR meloxicam - but not all of them Discharge Date/Time: 01/07/18 11:13
[2018-01-07] MEDS ORDERED: CHERRY SYRUP 10 ML UDC PO ONE (07:57)
--- NOTE | 2018-01-07 08:36 | Ultrasound Report ---
Procedure Date: 01/07/2018 Accession Number: [id number] / [id number] Procedure: US - Duplex Ext Veins Left CPT Code: FULL RESULT: EXAM: Duplex Ext Veins Left DATE: 01/07/2018 8:27 AM CLINICAL HISTORY: worsening LLE pain and swelling COMPARISON: 01/01/2018 TECHNIQUE: Real-time sonographic vascular imaging was performed by the radiological technician through the lower extremity utilizing both color-flow and Doppler spectral analysis. Multiple traffic representative static images were saved for review. FINDINGS: Common Femoral Vein (CFV): Normal. Superficial Femoral Vein (SFV) Prox: Normal. Superficial Femoral Vein (SFV) Mid: Normal. Superficial Femoral Vein (SFV) Dist: Normal. Popliteal Vein: Normal. Posterior Tibial Veins: Normal. Peroneal Veins: Normal. Other: None. IMPRESSION: Normal. No evidence for deep venous thrombosis. No significant interval change from 01/01/2018. RADIA
[2018-01-07] MEDS ORDERED: HYDROmorphone 1 MG/ML CARPUJECT IM STA ×2 (09:26→09:57)
[2018-01-07 10:08] LABS: BILIRUBIN,URINE NEGATIVE (NEGATIVE); GLUCOSE, URINE (UA) NEGATIVE (NEGATIVE); KETONES,URINE (UA) NEGATIVE (NEGATIVE); LEUKOCYTE ESTERASE, URINE LARGE (NEGATIVE); NITRITE,URINE NEGATIVE (NEGATIVE); OCCULT BLOOD,URINE NEGATIVE (NEGATIVE); PROTEIN,URINE NEGATIVE (NEGATIVE); UROBILINOGEN,URINE 0.2 (NORMAL) E.U./dL (NORMAL)
[2018-01-07 10:15] LABS: CLARITY,URINE HAZY (CLEAR); HCG UR QUAL NEGATIVE
[2018-01-07 10:34] LABS: BACTERIA,URINE Few /HPF (None Seen); RBC,URINE 0-5 /HPF (0-5); SQUAMOUS EPITHELIAL CELL,UR MOD Squamous (<= Few); TRICHOMONAS,URINE PRESENT (None Seen)
[2018-01-07 10:47] VITALS: BP 159/95
== END 2018-01-07 11:13 | disposition home or self-care (01) ==
LOC: ED 06:18
DX: M48.9 Spondylopathy, unspecified (principal); M54.42 Lumbago with sciatica, left side; Z79.1 Long term (current) use of non-steroidal anti-inflammatories (NSAID)
CPT/HCPCS: 51798; 81001; 81025; 93971; 96372; 99283; 99284; A9270; J1170; 81003; 87086

== ENCOUNTER 2018-02-08 11:13 | Outpatient (CLI) | payer MEDICAID | END 2018-02-08 11:14 | disposition critical access hospital (66) | LOC: EMS 11:13 | PROVIDERS: ATTEND Surgery | DX: M54.5 Low back pain (principal) | CPT/HCPCS: A0425; A0429; A0999 ==

== ENCOUNTER 2018-02-08 11:34 | Emergency (ER) | payer MEDICAID ==
[2018-02-08] MEDS ORDERED: fentaNYL 100 MCG/2 ML VIAL IM STA (12:06)
[2018-02-08] MEDS ORDERED: DEXAMETHASONE 10 MG/ML VIAL PO STA (12:10)
--- NOTE | 2018-02-08 12:13 | ED Physician Documentation ---
PD HPI BACK PAIN - Stated complaint Stated Complaint: BACK PX - Chief complaint Chief Complaint: General - History obtained from History obtained from: Patient, EMS - History of Present Illness Timing - onset: Today Timing - details: Still present Location: Lower, Left Quality: Pain, Similar to prior episodes Associated symptoms: No: Fever, Weakness, Numbness Similar symptoms before: Work up / diagnostics (MRI of the lumbar spine in December 2017.) Recently seen: Emergency Dept (Similar presentation here 1 month ago.) - Additional information Additional information: The patient is a 37-year-old female who presents with low back pain that started about 830 this morning. She was in the car on her way to see a neurosurgeon. She denies fever, urinary incontinence, numbness or weakness. She has history of similar episodes numerous times in the past. She has had numerous emergency department visits, the last time 1 month ago. 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 It measured 6.1 cm x 1.3 cm x 1.1 cm. She has not yet seen the neurosurgeon because twice she has had exacerbation of back pain while in the car riding to the appointment. 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 - Present Medications Home Medications: Ambulatory Orders Medication Instructions Recorded Confirmed Crutch [Crutches] 1 each MC DAILY PRN #1 each 01/07/18 Albuterol Sulfate [Proair Hfa 02/08/18 Inhaler] Gabapentin 600 mg PO TID 02/08/18 02/08/18 HYDROcod/ACETAM 5/325 [Vicodin 1 - 2 ea PO Q6H PRN #15 tablet 02/08/18 5/325] Ibuprofen [Ibu] 02/08/18 - Allergies Allergies/Adverse Reactions: Allergies Allergy/AdvReac Type Severity Reaction Status Date / Time No Known Drug Allergies Allergy Verified 02/08/18 11:42 - Social History Does the pt smoke?: No Smoking Status: Never smoker Does the pt drink ETOH?: No Does the pt have substance abuse?: Yes - Immunizations Immunizations are current?: Yes - POLST Patient has POLST: No PD ED PE NORMAL - Vitals Vital signs reviewed: Yes - General General: Alert and oriented X 3, Other (Morbidly obese; Prefers to stand at the bedside.) - HEENT HEENT: Atraumatic, Pharynx benign - Neck Neck: No bony TTP - Cardiac Cardiac: RRR - Respiratory Respiratory: No respiratory distress, Clear bilaterally - Abdomen Abdomen: Soft, Non tender - Back Back: No CVA TTP, No spinal TTP, Other (Tenderness to palpation along the left sacroiliac notch.) - Derm Derm: No rash - Extremities Extremities: No calf tenderness / cord, Other (Straight leg raise is positive on the left at 20 elevation; negative on the right.) - Neuro Neuro: Alert and oriented X 3, No motor deficit, No sensory deficit, Other (No sacral anesthesia.) Results - Vitals Vitals: Vital Signs - 24 hr 02/08/18 02/08/18 02/08/18 11:35 12:39 13:21 Temperature 36.2 C L Heart Rate 113 H 113 H 101 H Respiratory 20 18 Rate Blood Pressure 153/104 H 169/87 H O2 Saturation 97 99 Oxygen O2 Source Room air PD MEDICAL DECISION MAKING - ED course Complexity details: reviewed old records, re-evaluated patient, considered differential, d/w patient ED course: The patient's presentation is most consistent with acute exacerbation of recurrent low back pain. She has a known lumbar mass that was diagnosed by MRI less than 2 months ago. She missed her first appointment with the neurosurgeon 1 month ago because she came here with an acute exacerbation of back pain. Now today she has missed her rescheduled appointment with the neurosurgeon for the same reason. Her presentation does not suggest epidural abscess. She is being discharged with prescription for Vicodin, 15 tablets. I discussed with her the importance of rescheduling with the neurosurgeon and keeping the appointment. I discussed with her potentially worrisome signs or symptoms that should prompt reevaluation in the emergency department. - Sepsis Event Vital Signs: Vital Signs - 24 hr 02/08/18 02/08/18 02/08/18 11:35 12:39 13:21 Temperature 36.2 C L Heart Rate 113 H 113 H 101 H Respiratory 20 18 Rate Blood Pressure 153/104 H 169/87 H O2 Saturation 97 99 Oxygen O2 Source Room air Departure - Departure Disposition: 01 Home, Self Care Clinical Impression: Lumbar radiculopathy, acute Condition: Stable Instructions: ED Sciatica Follow-Up: Misty Little ARNP [Credentialed Staff Provider] - Prescriptions: HYDROcod/ACETAM 5/325 [Vicodin 5/325] 1 - 2 ea PO Q6H PRN #15 tablet PRN Reason: Pain Comments: You can use ibuprofen, up to 800 mg 3 times daily for its anti-inflammatory effect. You can use Vicodin as prescribed if needed for pain. Let pain be your guide to activity level. Follow-up with the neurosurgeon as soon as possible. Return to the emergency department if you develop increasing back pain, fever, numbness or weakness, or otherwise worsening symptoms. Discharge Date/Time: 02/08/18 13:21
[2018-02-08 12:41] VITALS: BP 169/87
== END 2018-02-08 13:21 | disposition home or self-care (01) ==
LOC: ED 11:34
DX: M54.16 Radiculopathy, lumbar region (principal)
CPT/HCPCS: 96372; 99283

== ENCOUNTER 2021-03-02 21:42 | Emergency (ER) | payer MEDICARE, MEDICAID ==
--- NOTE | 2021-03-02 22:30 | ED Physician Documentation ---
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 She states that she is having some difficulty walking over the past 3 to 4 days. She is noted some swelling to her leg for about a week. She was seen by her primary care doctor and asked to come to the emergency department for a duplex exam of her legs. She has had duplex exam previously which was negative about 3 years ago. She had tumor removed from her back 3 years ago. She continues to have chronic pain weight gain and lower extremity swelling.She is not immunized against Covid. 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 - Present Medications Home Medications: Ambulatory Orders Medication Instructions Recorded Confirmed Albuterol Sulfate [Proair Hfa 2 puffs INH PRN PRN 02/08/18 Inhaler] - Allergies Allergies/Adverse Reactions: Allergies Allergy/AdvReac Type Severity Reaction Status Date / Time No Known Drug Allergies Allergy Verified 03/02/21 21:47 - Social History Does the pt smoke?: No Smoking Status: Never smoker Does the pt drink ETOH?: No Does the pt have substance abuse?: Yes - Immunizations Immunizations are current?: Yes - POLST Patient has POLST: No PD ED PE NORMAL - Vitals Vital signs reviewed: Yes (Hypertensive) - General General: Alert and oriented X 3, No acute distress, Well developed/nourished - HEENT HEENT: Atraumatic, PERRL, EOMI - Respiratory Respiratory: No respiratory distress - Derm Derm: Normal color, Warm and dry - Extremities Extremities: No deformity, Other (The LE are large with tense swelling to the LLE. There is some mild erythema bilaterally worse on the L than the R that extends to about the mid calf. Nonblanching. There is more swelling around the left ankle medially with some mild tenderness. TTP to the posterior aspect of the R knee.) Results - Vitals Vitals: Vital Signs - 24 hr 03/02/21 03/02/21 03/02/21 21:47 22:11 23:18 Temperature 36.9 C Heart Rate 99 Respiratory 20 16 16 Rate Blood Pressure 161/99 H 143/70 H O2 Saturation 97 Oxygen O2 Source Room air PD MEDICAL DECISION MAKING - ED course Complexity details: reviewed old records, reviewed results, re-evaluated patient, considered differential, d/w patient, d/w family ED course: 40-year-old female with a prior history of a spinal cord tumor has developed some swelling to her lower extremities with some redness and she was sent by her primary to get duplex exam done. She is found to have a Liang's cyst. The appearance of her lower extremities appears more consistent with venous stasis disease than with cellulitis. She is given a dose of dexamethasone and referred to orthopedics. Departure - Departure Disposition: 01 Home, Self Care Clinical Impression: Liang's cyst of knee Qualifiers: Laterality: left Qualified Code(s): M71.22 - Synovial cyst of popliteal space [Liang], left knee Condition: Stable Instructions: ED Cyst Liang Follow-Up: Jatin Conner MD [Primary Care Provider] - Liu Nguyen MD [Provider Admit Priv/Credential] - Discharge Date/Time: 03/02/21 23:27
[2021-03-02 23:19] VITALS: BP 143/70
[2021-03-02] MEDS ORDERED: CHERRY SYRUP 10 ML UDC PO ONE (23:22)
[2021-03-02] MEDS ORDERED: DEXAMETHASONE 10 MG/ML VIAL PO STA (23:22)
--- NOTE | 2021-03-03 07:07 | Ultrasound Report ---
PROCEDURE: Duplex Ext Veins Left INDICATIONS: swelling and erythema TECHNIQUE: Real-time imaging, as well as color and pulse Doppler interrogation, were performed of the lower extr emity deep veins from the inguinal ligament to the popliteal fossa. COMPARISON: None. FINDINGS: Image quality is limited secondary to patient body habitus. The deep veins are normally co mpressible, and free of intraluminal thrombus. Color and pulse Doppler demonstrate normal phasic int raluminal flow. There is normal augmentation response to distal compression maneuver. 2.1 x 1.0 x 1.5 cm left popliteal cyst. IMPRESSION: No evidence of deep vein thrombosis involving the left lower extremity. Reviewed by: Raysa Alcocer MD, PhD on 03/03/2021 7:05 AM PDT Approved by: Raysa Alcocer MD, PhD on 03/03/2021 7:05 AM PDT Station ID: [id number]
== END 2021-03-02 23:27 | disposition home or self-care (01) ==
LOC: ED 21:42
DX: M71.22 Synovial cyst of popliteal space [Baker], left knee (principal)
CPT/HCPCS: 93971; 99283; A9270

== ENCOUNTER 2021-06-20 11:29 | Outpatient (CLI) | payer MEDICARE, MEDICAID ==
--- NOTE | 2021-06-20 17:08 | XRAY Report ---
PROCEDURE: Knee 4 View LT INDICATIONS: BERRY'S CYST LEFT KNEE TECHNIQUE: 4 views of the left knee(s) were acquired. COMPARISON: None. FINDINGS: Bones: No fractures or dislocations. No suspicious bony lesions. Moderate left knee medial compartm ent arthritis. [id number] left knee patellofemoral compartment osteophytosis. Mild left knee la teral compartment osteoarthritis. Soft tissues: No joint effusion. No suspicious soft tissue calcifications. IMPRESSION: Left knee tricompartmental osteoarthritis. Reviewed by: Raysa Alcocer MD, PhD on 06/20/2021 5:07 PM PST Approved by: Raysa Alcocer MD, PhD on 06/20/2021 5:07 PM PST Station ID: [id number]
== END 2021-06-20 23:59 | disposition home or self-care (01) ==
LOC: DI.N 11:29
PROVIDERS: ATTEND Physician Assistant
DX: M71.22 Synovial cyst of popliteal space [Baker], left knee (principal); M17.12 Unilateral primary osteoarthritis, left knee

== ENCOUNTER 2021-11-20 08:00 | Outpatient (CLI) | payer OTHER, MEDICAID ==
--- NOTE | 2021-11-20 17:40 | XRAY Report ---
PROCEDURE: Shoulder 2 View RT INDICATIONS: PAIN IN RIGHT SHOULDER TECHNIQUE: 2 views of the shoulder were acquired. COMPARISON: None. FINDINGS: Bones: No fractures or dislocations. No suspicious bony lesions. Visualized ribs appear intact. Soft tissues: No suspicious soft tissue calcifications. The visualized lung demonstrates a normal a ppearance. IMPRESSION: No significant plain film abnormality is seen. If it would be helpful for clinical management decision making, please consider a dedicated, schedule d shoulder MRI for further evaluation (assuming that there is no contraindication). Reviewed by: Jones Suárez MD on 11/20/2021 4:38 PM JOSE Approved by: Jones Suárez MD on 11/20/2021 4:38 PM JOSE Station ID: [id number]
== END 2021-11-20 23:59 | disposition home or self-care (01) ==
LOC: DI.N 08:00
PROVIDERS: ATTEND Nurse Practitioner
DX: M25.511 Pain in right shoulder (principal)

== ENCOUNTER 2022-07-18 15:49 | Outpatient (CLI) | payer MEDICARE, MEDICAID ==
--- NOTE | 2022-07-18 15:54 | XRAY Report ---
PROCEDURE: Knee 4 View BILAT INDICATIONS: BILAT KNEE PAIN TECHNIQUE: 4 views of the bilateral knee(s) were acquired. COMPARISON: 06/20/2021. FINDINGS: Bones: No fractures or dislocations. No patella subluxations. Mild to moderate bilateral tricompartm ental osteoarthritis is seen most notably in medial femoral tibial compartment slightly worse on the right side. No suspicious bony lesions. Soft tissues: No joint effusion. No suspicious soft tissue calcifications. IMPRESSION: Right worse than left bilateral tricompartmental osteoarthritis most notably in medial f emoral tibial compartments. No fracture or dislocation. No significant joint effusion. Reviewed by: Lico Negron MD on 07/18/2022 3:53 PM PST Approved by: Lico Negron MD on 07/18/2022 3:53 PM PST Station ID: [id number]
== END 2022-07-18 15:50 | disposition home or self-care (01) ==
LOC: DI.WOS 15:49
PROVIDERS: ATTEND Physician Assistant Surgical
DX: M17.0 Bilateral primary osteoarthritis of knee (principal)

== ENCOUNTER 2023-07-09 21:57 | Emergency (ER) | payer MEDICARE, MEDICAID ==
[2023-07-09 22:10] VITALS: BP 130/90; O2SAT 98
[2023-07-09 22:17] LABS: BASOPHILS # (AUTO) 0.1 10^3/uL (0.0-0.1); BASOPHILS % (AUTO) 0.7 %; EOSINOPHILS # (AUTO) 0.1 10^3/uL (0.0-0.7); EOSINOPHILS % (AUTO) 0.7 %; HCT - HEMATOCRIT 51.8 % (37.0-47.0); HGB - HEMOGLOBIN 16.2 g/dL (12.0-16.0); LYMPHOCYTES % (AUTO) 28.1 %; MEAN CORPUSCULAR HGB CONC 31.3 g/dL (32.0-36.0); MEAN CORPUSCULAR VOLUME 86.5 fL (81.0-99.0); MEAN PLATELET VOLUME 10.2 fL (7.9-10.8); MONOCYTES # (AUTO) 0.5 10^3/uL (0.0-1.0); MONOCYTES % (AUTO) 4.9 %; NEUTROPHILS % (AUTO) 65.2 %; PLT - PLATELET COUNT 261 10^3/uL (130-450); RED BLOOD COUNT 5.99 10^6/uL (4.20-5.40); RED CELL DISTRIBUTION WIDTH 13.1 % (12.0-15.0); WHITE BLOOD COUNT 10.7 x10^3/uL (4.8-10.8)
[2023-07-09 22:35] LABS: ALBUMIN 3.9 g/dL (3.2-5.5); BILIRUBIN,TOTAL 0.4 mg/dL (0.2-1.0); CALCIUM 9.4 mg/dL (8.5-10.3); CREATININE 0.7 mg/dL (0.6-1.3); POTASSIUM 3.9 mmol/L (3.5-4.5)
[2023-07-09] MEDS ORDERED: predniSONE 20 MG TABLET PO STA (23:54)
[2023-07-09] MEDS ORDERED: ACYCLOVIR 200 MG CAPSULE PO STA (23:54)
--- NOTE | 2023-07-09 23:55 | CT Report ---
PROCEDURE: Head WO INDICATIONS: R facial droop TECHNIQUE: Noncontrast 4.5 mm thick angled axial sections acquired from the foramen magnum to the vertex. For r adiation dose reduction, the following was used: automated exposure control, adjustment of mA and/or kV according to patient size. COMPARISON: None. FINDINGS: Image quality: Excellent. CSF spaces: Basal cisterns are patent. No extra-axial fluid collections. Ventricles are normal in size and shape. Brain: No midline shift. No intracranial masses or hemorrhage. Diaz-white matter interface is norm al. Skull and face: Calvarium and visualized facial bones are intact, without suspicious lesions. Sinuses: Visualized sinuses and mastoids are clear. IMPRESSION: No acute intracranial pathology. Reviewed by: Sharad Beltran MD on 07/09/2023 11:54 PM PST Approved by: Sharad Beltran MD on 07/09/2023 11:54 PM PST Station ID: [id number]
--- NOTE | 2023-07-09 23:55 | ED Physician Documentation ---
History of Present Illness - Stated complaint Stated Complaint: RT SIDE FACE NUMBNESS,BACK PX - Chief complaint Chief Complaint: Neuro - History obtained from History obtained from: Patient, Friend - Additonal information Additional information: The patient comes to the emergency department chief complaint of right facial weakness and right upper back pain. The back pain has been going on for the couple of days and patient states it is between the bottom of her scapula and her spine. Hurts when she stretches her arm or moves certain ways. She denies any pain in the spine itself. No injury. No cough or shortness of breath. The patient has a history of removal of a spinal tumor, and is followed for this. She just had MRIs in the summertime and was told that everything looked good. She began to develop a facial droop 2 days ago, as well. She states that her right eye is not closing all the way because of it, but she denies any irritation of the eye. She has not had any viral symptoms recently. No history of CVA. No unilateral weakness of any of her extremities. No word finding difficulties or visual changes. No other complaints at this time. PD PAST MEDICAL HISTORY - Past Medical History Past Medical History: Yes Cardiovascular: None Respiratory: Asthma Neuro: None Endocrine/Autoimmune: None GI: None EAP COUNSELOR: None : None HEENT: None Psych: Depression, Anxiety Musculoskeletal: Chronic back pain Derm: None - Past Surgical History Past Surgical History: Yes /EAP COUNSELOR: section, 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 - Present Medications Home Medications: Ambulatory Orders Medication Instructions Recorded Confirmed Albuterol Sulfate [Proair Hfa 2 puffs INH PRN PRN 02/08/18 Inhaler] Acyclovir [Zovirax] 200 mg PO 5XD #35 cap 07/10/23 predniSONE [Deltasone] 10 mg PO [id number] #42 tab 07/10/23 - Allergies Allergies/Adverse Reactions: Allergies Allergy/AdvReac Type Severity Reaction Status Date / Time No Known Drug Allergies Allergy Verified 07/09/23 22:01 - Social History Does the pt smoke?: No Smoking Status: Never smoker Does the pt drink ETOH?: No Does the pt have substance abuse?: Yes - Immunizations Immunizations are current?: Yes - POLST Patient has POLST: No PD ED PE NORMAL - Vitals Vital signs reviewed: Yes - General General: Alert and oriented X 3, No acute distress, Well developed/nourished - HEENT HEENT: Atraumatic, PERRL, EOMI, Moist mucous membranes - Neck Neck: Supple, no meningeal sign - Cardiac Cardiac: RRR, No murmur - Respiratory Respiratory: No respiratory distress, Clear bilaterally - Abdomen Abdomen: Soft, Non tender, Non distended - Back Back: No spinal TTP, Other (Tenderness to palpation over the musculature of the right mid to upper back through the scapula and the spine. A muscle knot is noted.) - Derm Derm: Warm and dry - Extremities Extremities: No deformity - Neuro Neuro: Alert and oriented X 3, Other (Right facial weakness not sparing forehead. Unable to completely close eye. Remainder of neurologic exam intact.) - Psych Psych: Normal mood, Normal affect Results - Vitals Vitals: Vital Signs - 24 hr 07/09/23 07/09/23 22:01 22:05 Temperature 36.5 C 36.5 C Heart Rate 114 H 114 H Respiratory 16 16 Rate Blood Pressure 130/90 H 130/90 H O2 Saturation 98 98 Oxygen O2 Source Room air - EKG (time done) 2310 EKG releavant findings:: EKG personally interpreted by author of this note. Relevant findings are: Rate: Rate (enter#) (100) Rhythm: Sinus tachycardia, LAE Lane: Normal Intervals: Normal GA QRS: Normal Ischemia: Non specific changes Compare to prior EKG: Old EKG unavailable Computer interpretation: Agree with computer - Labs Labs: Laboratory Tests 07/09/23 07/09/23 22:13 22:13 WBC 10.7 RBC 5.99 H Hgb 16.2 H Hct 51.8 H MCV 86.5 MCH 27.0 MCHC 31.3 L RDW 13.1 Plt Count 261 MPV 10.2 Neut # (Auto) 7.0 H Lymph # (Auto) 3.0 [place] # (Auto) 0.5 Eos # (Auto) 0.1 Baso # (Auto) 0.1 Absolute Nucleated RBC 0.00 Nucleated RBC % 0.0 Sodium 133 L Potassium 3.9 Chloride 100 L Carbon Dioxide 26 Anion Gap 7.0 BUN 10 Creatinine 0.7 Estimated GFR (MDRD) 90 Glucose 298 H Calcium 9.4 Total Bilirubin 0.4 AST 12 ALT 13 Alkaline Phosphatase 103 Total Protein 8.0 Albumin 3.9 Globulin 4.1 Albumin/Globulin Ratio 1.0 Lipase 40 - Rads (name of study) head Relevant Findings:: Final report received, See rad report (neg) PD Medical Decision Making - ED course Complexity details: reviewed old records, reviewed results, re-evaluated patient, considered differential, d/w patient, d/w family ED course: I discussed with the patient that 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 Her workup here has been completely negative, other than hyperglycemia. CT scan is unremarkable. EKG shows borderline sinus tachycardia but otherwise unremarkable. I started the patient on acyclovir and prednisone taper. We have discussed that Elmore's palsy can go on for several weeks and that the patient may follow-up with her primary care physician if she wishes but this will most likely have to just run its course. We discussed the usual indications for return. Departure - Departure Disposition: Home, Self Care Clinical Impression: Elmore's palsy, Spasm of thoracic back muscle, Hyperglycemia Condition: Stable Instructions: ED Spasm Back No Trauma Prescriptions: predniSONE [Deltasone] 10 mg PO [id number] #42 tab Acyclovir [Zovirax] 200 mg PO 5XD #35 cap Comments: Your CT and laboratory studies look good overall. There is no evidence of a stroke or of a tumor growing in your brain. Your blood sugar is moderately elevated, but otherwise, no concerning findings were noted on any of your tests. As we discussed, your symptoms are most consistent with Elmore's palsy, of facial nerve paralysis that is temporary but can last for some weeks. You have been started on prednisone, a steroid, and acyclovir, an antiviral, for this. Prescriptions for the same been electronically transmitted to the [facility] pharmacy in [place], your pharmacy of choice on record. Please schedule an appointment to follow-up with your primary care physician for further concerns, and to follow-up on your elevated blood sugar to determine whether you have diabetes and need treatment. Forms: PCP List
== END 2023-07-10 01:30 | disposition home or self-care (01) ==
LOC: ED 21:57
DX: G51.0 Bell's palsy (principal); M62.830 Muscle spasm of back; R73.9 Hyperglycemia, unspecified; Z79.899 Other long term (current) drug therapy
CPT/HCPCS: 36415; 70450; 80053; 83690; 85025; 93005; 99283; 99284; A9270; J7512

== ENCOUNTER 2025-03-04 05:30 | Observation (INO) ==
[2025-03-04] MEDS: DROPERIDOL 5 MG/2 ML VIAL IVP STA (06:00)
--- NOTE | 2025-03-04 06:36 | ED Physician Documentation ---
History of Present Illness Stated complaint Stated Complaint: ABD PX Chief complaint Chief Complaint: Abd Pain History obtained from History obtained from: Patient Additonal information Additional information: The patient comes to the emergency department chief complaint of of upper abdominal pain since last night. She states that the pain becomes generalized but seems to be coming from the upper half of her abdomen. She denies any surgeries previously. No history of any particular abdominal conditions. She states that she has had a little bit of nausea but mostly, a sense of cramping pain. She denies any constipation or diarrhea. She has a history of diabetes. She has had occasional pain like this but never this bad. She denies fevers or chills. No respiratory symptoms. No other complaints at this time. Meds/Allgy Home Medications Ambulatory Orders Medication Instructions Recorded Confirmed ibuprofen 200 mg tablet 200 mg PO Q6H PRN 09/12/24 0 02/28/25 carboxymethylcellulose sodium 1 % 1 drp ophthalmic (ey e) TID 30 days 11/13/24 02/28/25 eye drops (Artificial Tears #15 mL (carboxymethylcellulose)) cyclosporine 0.05 % eye drops in a 1 drp ophthalmic (e ye) Q12H #30 ea 11/19/24 02/28/25 dropperette albuterol sulfate 90 mcg/actuation 2 puff inhalation Q 4-6H PRN SOA 12/12/24 02/28/25 aerosol inhaler (ProAir HFA) #8.5 grams metformin 500 mg tablet 500 mg PO BID #180 tabs 06/12/3102/28/25 medroxyprogesterone 10 mg tablet 10 mg PO .COMPLEX #21 tabs 12/25/24 02/28/25 cyclobenzaprine 5 mg tablet 5 mg PO BID PRN muscle spa sm #60 02/04/25 02/28/25 tabs sertraline 50 mg tablet 50 mg PO QDAY #90 tabs 02/0402/28/25 nystatin 100,000 unit/gram topical 1 applic topical BI D #30 grams 02/05/25 02/28/25 cream Allergies Allergies Allergy/AdvReac Type Severity Reaction Status Date / Time No Known Drug Allergies Allergy Verified 03/04/25 05:39 PFSH Active Problems All Active Problems Intertrigo (Acute) Bilateral knee pain (Acute) SUELLEN (generalized anxiety disorder) (Acute) Mild intermittent asthma (Acute) Diabetes mellitus with hyperglycemia (Acute) Elmore's palsy (Acute) Trigeminal neuralgia (Acute) Dry eye (Acute) Low back pain (Chronic) Sciatica (Acute) Medical History Medical History Spinal cord mass s/p resection by dr. Peña, Last MRI 01/2025 - stable. Repeat Lumbar, Thoacic MRI in 01/2026 Trichomonas vaginitis Pneumonia Lumbar radiculopathy, acute Back pain Mass of spine UTI (urinary tract infection) Leg swelling Elevated heart rate with elevated blood pressure without diagnosis of hypertension Oral lesion Social History Social History (Updated 02/28/25 @ 15:27 by Johanna Viramontes) Smoking Status: Never smoker Second hand tobacco smoke exposure: No Do you dip or chew tobacco?: No Do you vape?: No Living arrangement: At home Marital Status: Single Living Condition: With family Support Person: Yes Level: Independent Do you feel safe in your home environment?: Yes History of physical, verbal, emotional, or financial abuse?: No ETOH Use: None Substance Use: cannabis (any form) POLST Patient has POLST: No Exam Exam Vital Signs: Vital Signs x48h Temp Pulse Resp BP Pulse Ox 03/04/25 05:33 37.2 C 126 H 22 146/78 H 96 Constitutional normal general appearance and no apparent distress Patient appears uncomfortable but no apparent distress. HENMT normocephalic, head/scalp atraumatic, external nose normal and oral mucous membranes normal Eyes EOMs intact bilaterally Neck/C-Spine visual inspection normal and supple Respiratory breath sounds equal bilaterally, normal respiratory effort and clear to auscultation bilaterally Cardiovascular normal heart rate noted, regular rhythm noted and no edema Gastrointestinal abdomen soft to palpation and nondistended Diffuse tenderness across upper abdomen both sides, no rebound or guarding. Genitourinary no CVA tenderness Extremities normal to inspection Neurology Alert, grossly intact Psychiatry mental status grossly normal Skin skin color normal Results Vitals Vitals: Vital Signs - 24 hr 03/04/25 05:33 Temperature 37.2 C Temperature Source Tympanic Pulse Rate 126 H Respiratory Rate 22 Blood Pressure 146/78 H O2 Saturation 96 O2 Source Room air Pain Intensity 7 Oxygen O2 Source Room air PD Medical Decision Making ED course Complexity details: reviewed old records, reviewed results, considered differential and d/w patient ED course: The patient was treated symptomatically in the emergency department with IV fluids, antiemetics, and analgesia. She had some tenderness across her upper abdomen and laboratory studies were ordered and are pending at this time. I did also order a CT scan of the abdomen and pelvis which is also pending. The patient signed out to Dr. Reyes at change of shift, pending results of studies and reevaluation with final disposition. Discharge Plan Discharge Prescriptions: No Action cyclosporine 0.05 % dropperette 1 drp ophthalmic (eye) Q12H Qty: 30 2RF albuterol sulfate [ProAir HFA] 90 mcg/actuation HFA aerosol inhaler 2 puff inhalation Q4-6H PRN (Reason: SOA) Qty: 8.5 3RF metformin 500 mg tablet 500 mg PO BID Qty: 180 3RF medroxyprogesterone 10 mg tablet 10 mg PO .COMPLEX Qty: 21 3RF Rx Instructions: 10 mg orally Qday for seven days each month; nystatin 100,000 unit/gram cream 1 applic topical BID Qty: 30 2RF Patient Comments: APPLY SMALL AMOUNT TOPICALLY TO THE AFFECTED AREA TWICE DAILY Artificial Tears (cmc) 1 % drops 1 drp ophthalmic (eye) TID 30 Days Qty: 15 2RF Rx Instructions: into left eye sertraline 50 mg tablet 50 mg PO QDAY Qty: 90 1RF cyclobenzaprine 5 mg tablet 5 mg PO BID PRN (Reason: muscle spasm) Qty: 60 1RF ibuprofen 200 mg tablet 200 mg PO Q6H PRN Print Language: Iraqi Stand Alone Forms: PCP List
--- OUTSIDE RECORDS SUMMARY | 2025-03-04 06:54 | EXTERNAL MEDICAL SUMMARY RPT | Continuity of Care Document ---
Author Organization [place] Address [address] [address] Phone Problems date description facility 2024-12-17 09:54 Other specified diseases of spi nal cord [facility] 2024-12-17 09:54 Radiculopathy, lumbar region [facility] 2024-12-17 09:56 Other specified diseases of spi nal cord [facility] 2024-12-17 09:56 Radiculopathy, lumbar region [facility] 2024-12-30 15:36 Other specified diseases of spi nal cord [facility] 2024-12-30 15:36 Radiculopathy, lumbar region [facility] 2024-12-31 11:06 Other specified diseases of spi nal cord [facility] 2024-12-31 11:06 Radiculopathy, lumbar region [facility] 2024-12-31 11:10 Other specified diseases of spi nal cord [facility] 2024-12-31 11:10 Radiculopathy, lumbar region [facility] 2025-01-03 13:18 Other specified diseases of spi nal cord [facility] 2025-01-03 13:18 Radiculopathy, lumbar region [facility] 2025-01-04 00:00 Other specified diseases of spi nal cord [facility] 2025-01-04 00:00 Radiculopathy, lumbar region [facility] 2025-02-02 10:53 Other specified diseases of spi nal cord [facility] 2025-02-02 10:53 Radiculopathy, lumbar region [facility] 2025-02-04 14:30 Generalized anxiety disorder [facility] 2025-02-04 14:30 [facility] in right [facility] 2025-02-04 14[facility]30 [facility] 2025-02-28 16:11 Other chronic pain [facility] 2025-02-28 16:11 Other specified diseases of spi nal cord [facility] 2025-02-28 16:11 Pain in right knee [facility] 2025-02-28 16:11 Pain in left knee [facility] 2025-02-28 16:11 Lumbago with sciatica, right si de [facility] 2025-02-28 16:11 Lumbago with sciatica, left neil e [facility] 2025-03-03 09:34 Other chronic pain [facility] 2025-03-03 09:34 Other specified diseases of spi nal cord [facility] 2025-03-03 09:34 Pain in right knee [facility] 2025-03-03 09:34 [facility] 2025-03-03 09:34 Lumbago with sciatica, right si de [facility] 2025-03-03 09:34 Lumbago with sciatica, left neil e [facility] Social History date description facility
[2025-03-04 07:08] LABS: HCT - HEMATOCRIT 39.9 % (37.0-47.0); HGB - HEMOGLOBIN 13.0 g/dL (12.0-16.0); MEAN PLATELET VOLUME 10.2 fL (7.9-10.8); PLT - PLATELET COUNT 186 10^3/uL (130-450); RED CELL DISTRIBUTION WIDTH 12.9 % (12.0-15.0)
[2025-03-04 07:14] LABS: SLIDE REVIEW? Indicated
[2025-03-04 07:15] LABS: ABNORMAL LYMPHS % (MANUAL) 0 %; BASOPHILS # (MANUAL) 0.0 10^3/uL (0-0.1); EOSINOPHILS # (MANUAL) 0.0 10^3/uL (0-0.7); MONOCYTES # (MANUAL) 0.0 10^3/uL (0.0-1.0)
[2025-03-04 07:20] LABS: ALT ALANINE AMINOTRANSFERASE 22.0 IU/L (10-60); AST ASPARTATE AMINOTRANSFERASE 31.0 IU/L (10-42); BUN - BLOOD UREA NITROGEN 9.0 mg/dL (6-20); CARBON DIOXIDE - CO2 28.0 mmol/L (21-32); CREATININE 0.6 mg/dL (0.6-1.3); GFR - MDRD 108.0 (>89)
[2025-03-04 07:27] LABS: HCG,QUALITATIVE BLOOD NEGATIVE
[2025-03-04] MEDS: SODIUM CHLORIDE 0.9% 1,000 ML IV STA ×2 (07:29→17:42)
[2025-03-04 07:30] LABS: BAND NEUTROPHILS % (MANUAL) 22 %; LYMPHOCYTES # (MANUAL) 0.5 10^3/uL (1.5-3.5); LYMPHOCYTES % (MANUAL) 4 %; METAMYELOCYTES % (MANUAL) 2 %; NEUTROPHILS # (MANUAL) 6.8 10^3/uL (1.5-6.6); RBC MORPHOLOGY (MULTIPLE) 1+ ANISOCYTOSIS (NORMAL); REACTIVE LYMPHS % (MANUAL) 3 %
[2025-03-04] MEDS: HYDROmorphone 1 MG/ML CARPUJECT IVP STA (07:49)
[2025-03-04] MEDS: POTASSIUM CHLOR 10 MEQ/100 ML 10 MEQ/100 ML BAG IV ONE (08:38)
--- NOTE | 2025-03-04 08:45 | ED Physician Documentation ---
ED Addendum Addendum Addendum: 44-year-old Dariela Cheung is left my care at shift change with acute abdominal pain present for less than [address] scan of the abdomen and pelvis pending. I evaluated the patient at the bedside found that she had a generalized abdominal tenderness I felt that it was worse on the right side the patient was unable to confirm this. The patient appears ill and is slow to respond with delay in execution of motor commands and speech latency as well as some mumbling speech. She has a normal white blood cell count with 22% bands. The patient's CT scan shows acute appendicitis which appears retroperitoneal with significant inflammation. I consulted our surgeon Dr. Means, who came to the emergency department and evaluated the patient. He was concerned about the potential for alternative diagnoses and he has placed an NG tube and has given oral Gastrografin to rule out alternative diagnosis as a reason for the patient's pain and findings. Anesthesia has requested electrocardiogram which I have reviewed it does look like it shows a sinus tachycardia with a rate of 110. This is faster than last recording. There are some flattened T waves laterally since her last recording done 07-09-23. (corresponding to a low K+)At shift change the patient remains in the ED pending further work up including an oral contrast study. Discharge Plan Discharge Patient Disposition: ED Transfer to [facility] Condition: Fair Clinical Impression: Appendicitis Prescriptions: No Action cyclosporine 0.05 % dropperette 1 drp ophthalmic (eye) Q12H Qty: 30 2RF albuterol sulfate [ProAir HFA] 90 mcg/actuation HFA aerosol inhaler 2 puff inhalation Q4-6H PRN (Reason: SOA) Qty: 8.5 3RF metformin 500 mg tablet 500 mg PO BID Qty: 180 3RF medroxyprogesterone 10 mg tablet 10 mg PO .COMPLEX Qty: 21 3RF Rx Instructions: 10 mg orally Qday for seven days each month; nystatin 100,000 unit/gram cream 1 applic topical BID Qty: 30 2RF Patient Comments: APPLY SMALL AMOUNT TOPICALLY TO THE AFFECTED AREA TWICE DAILY Artificial Tears (cmc) 1 % drops 1 drp ophthalmic (eye) TID 30 Days Qty: 15 2RF Rx Instructions: into left eye sertraline 50 mg tablet 50 mg PO QDAY Qty: 90 1RF cyclobenzaprine 5 mg tablet 5 mg PO BID PRN (Reason: muscle spasm) Qty: 60 1RF ibuprofen 200 mg tablet 200 mg PO Q6H PRN (Reason: fever or pain) Print Language: Yoruba Stand Alone Forms: PCP List Results Results reviewed: A CT scan of the abdomen pelvis performed with contrast demonstrates acute appendicitis. This was discussed with the radiologist Dr. Chou indicates a retrocecal appendix with significant inflammation.
--- NOTE | 2025-03-04 08:45 | CT Report ---
PROCEDURE: CT Abdomen/Pelvis W INDICATIONS: upper abd pain CONTRAST: OMNI 300 100 ML TECHNIQUE: After the administration of intravenous contrast, a CT scan of the abdomen and pelvis was performed. Images were recorded and evaluated at appropriate window settings. Reformats: coronal and sagittal. For radiation dose reduction, the following was used: automated exposure control, adjustment of mA and/or kV according to patient size. COMPARISON: None. FINDINGS: Image quality: Diagnostic. Lower chest: Mild cardiomegaly.. Liver: No solid mass. Mild hepatomegaly. Liver measures 20.6 cm in craniocaudal dimension.. Gallbladder: Gallbladder hydrops. No calcified stones. Biliary tree: No intrahepatic or extrahepatic dilation, accounting for age. Spleen: No splenomegaly. Pancreas: No pancreatic ductal dilation. Adrenals: No adrenal nodule. Kidneys and ureters: No hydronephrosis. No renal cystic lesion which requires follow up. No solid mass. Stomach, bowel and peritoneum: No gastric or small bowel dilation. No abnormal wall thickening. Acute appendicitis involving a retrocecal appendix with minimal associated fluid and inflammatory change in the adjacent fat. The base of the appendix is markedly dilated, measuring 14 mm. Cannot exclude early rupture based on the amount of inflammatory change in the adjacent fat. Mild pelvic free fluid, which may be physiologic fluid. However, cannot exclude early sequelae of ruptured appendicitis . Lymph nodes: No central or retroperitoneal adenopathy. Vessels: No infrarenal aortic aneurysm. Patent portal vein. PELVIS Reproductive organs: Unremarkable. Bladder: No abnormal wall thickening. Pelvic lymph nodes: No pelvic adenopathy by size criteria. Bones: No aggressive osseous abnormality. Other: No significant ventral or inguinal hernia. IMPRESSION: 1. Acute appendicitis involving a retrocecal appendix. Cannot exclude early rupture. The appendix is quite dilated and there is significant inflammatory change in adjacent fat. A small amount of pelvic fluid may be physiologic. 2. Mild hepatomegaly. 3. Distended gallbladder, a nonspecific finding. Above discussed with Michael Reyes MD at the time of dictation on 03/04/2025 at 0841 hours. Reviewed by: Anupam Fernando MD on 03/04/2025 8:44 AM PDT Approved by: Anupam Fernando MD on 03/04/2025 8:44 AM PDT Station ID: [id number]
[2025-03-04] MEDS: PIPERACILLIN/TAZOBACTAM 3.375 GM in SODIUM CHLORIDE 0.9% MINIBAG 100 ML IV STA ×2 (09:39→17:37)
--- NOTE | 2025-03-04 10:21 | XRAY Report ---
PROCEDURE: XR Chest 1V INDICATIONS: hypoxia/obtunded TECHNIQUE: One view of the chest was acquired. COMPARISON: None. FINDINGS: Surgical changes and devices: None. Lungs and pleura: Question mild interstitial pulmonary edema. Patchy bibasilar atelectasis. Mediastinum: Mediastinal contours appear normal. Heart size is enlarged. Bones and chest wall: No suspicious bony lesions. Overlying soft tissues appear unremarkable. IMPRESSION: Cardiomegaly. Question mild interstitial pulmonary edema. Patchy bibasilar atelectasis. Reviewed by: Anupam Fernando MD on 03/04/2025 10:20 AM PDT Approved by: Anupam Fernando MD on 03/04/2025 10:20 AM PDT Station ID: [id number]
[2025-03-04 10:23] LABS: ABG PCO2 37 mmHg (34-45); ABG PH 7.42 (7.35-7.45); ABG PO2 76 mmHg (83-108)
[2025-03-04 10:24] LABS: ABG BASE EXCESS -0.6 mmol/L (-2.0-3.0); ABG HCO3 24.2 mmol/L (22.0-26.0); ABG OXYGEN SATURATION 97 % (95-98); ABG TCO2 25.3 mmol/L (21.0-29.0)
[2025-03-04] MEDS ORDERED: BUPIVACAINE 0.5%-EPI 1:200000 PF 10 ML VIAL ONE ×2 (12:08→19:05)
--- NOTE | 2025-03-04 13:18 | CONSULTATION NOTE ---
Referring Provider Name of Referring Provider:: Dr. Michael Springer Consult Date: 02/25/25 Chief Complaint Chief Complaint Chief Complaint: Abdominal pain History of Present Illness Admitted From Admitted From:: Home History Obtained From Records Reviewed: EMR History obtained from: Patient Exam Limitations: Sleepy, lethargic History of Present Illness HPI Comment/Other: Patient is a 44-year-old female with a history of generalized anxiety disorder, chronic lower back pain with a spinal mass that was recently removed, who presents with abdominal pain, and her right lower quadrant. Patient states that she started having the pain last night. It starts in her right lower quadrant, and then sometimes can radiate throughout the whole abdomen. She endorses nausea. She denies any fevers or chills. During our conversation, she is falling asleep. When asked why, she wakes up and says that she did not get any sleep last night. She does not endorse any shortness of breath. She does not have any known history of heart failure or any heart problems. In terms of past medical history, she endorses anxiety and her chronic lower back issues, as well as intermittent asthma, for which she very rarely uses her albuterol inhaler. She takes sertraline for this. She lives with her daughter. She denies any alcohol, tobacco, recreational drug use. Besides a spine stimulator, she does not recall any surgeries. In the ER, she is afebrile, blood pressure between 130-146 systolic. She is slightly tachycardic in the low 1 teens to 120s range. She has some tachypnea noted, but improves with conversation. She is saturating 96% on 2 L. Lab work shows normal white count. ABG is largely unremarkable. Potassium is low at 3.3. CT abdomen/pelvis shows acute appendicitis involving a retrocecal appendix, with dilatation and inflammatory changes, as well as a distended gallbladder. Chest x-ray shows mild interstitial pulmonary edema and cardiomegaly. General surgery was consultedthey are reordering CT scan of the abdomen pelvis with oral contrast. Plan is for NG tube placement for this contrast. Meds/Allgy Home Medications Ambulatory Orders Medication Instructions Recorded Confirmed ibuprofen 200 mg tablet 200 mg PO Q6H PRN fever or p ain 09/12/24 03/04/25 carboxymethylcellulose sodium 1 % 1 drp ophthalmic (ey e) TID 30 days 11/13/24 02/28/25 eye drops (Artificial Tears #15 mL (carboxymethylcellulose)) cyclosporine 0.05 % eye drops in a 1 drp ophthalmic (e ye) Q12H #30 ea 11/19/24 03/04/25 dropperette albuterol sulfate 90 mcg/actuation 2 puff inhalation Q 4-6H PRN SOA 12/12/24 03/04/25 aerosol inhaler (ProAir HFA) #8.5 grams metformin 500 mg tablet 500 mg PO BID #180 tabs 0612/3103/04/25 medroxyprogesterone 10 mg tablet 10 mg PO .COMPLEX #21 tabs 12/25/24 03/04/25 cyclobenzaprine 5 mg tablet 5 mg PO BID PRN muscle spa sm #60 02/04/25 03/04/25 tabs sertraline 50 mg tablet 50 mg PO QDAY #90 tabs 02/0403/04/25 nystatin 100,000 unit/gram topical 1 applic topical BI D #30 grams 02/05/25 03/04/25 cream Allergies Allergies Allergy/AdvReac Type Severity Reaction Status Date / Time No Known Drug Allergies Allergy Verified 03/04/25 05:39 PFSH Active Problems All Active Problems (Updated 03/04/25 @ 15:10 by Tyree Hernandez MD) Acute metabolic encephalopathy (Acute) Abdominal pain (Acute) Appendicitis (Acute) Intertrigo (Acute) Bilateral knee pain (Acute) SUELLEN (generalized anxiety disorder) (Acute) Mild intermittent asthma (Acute) Diabetes mellitus with hyperglycemia (Acute) Elmore's palsy (Acute) Trigeminal neuralgia (Acute) Dry eye (Acute) Low back pain (Chronic) Sciatica (Acute) Medical History Medical History (Updated 03/04/25 @ 15:10 by Tyree Hernandez MD) Spinal cord mass s/p resection by dr. Peña, Last MRI 01/2025 - stable. Repeat Lumbar, Thoacic MRI in 01/2026 Trichomonas vaginitis Pneumonia Lumbar radiculopathy, acute Back pain Mass of spine UTI (urinary tract infection) Leg swelling Elevated heart rate with elevated blood pressure without diagnosis of hypertension Oral lesion Social History Social History (Updated 02/28/25 @ 15:27 by Johanna Viramontes) Smoking Status: Never smoker Second hand tobacco smoke exposure: No Do you dip or chew tobacco?: No Do you vape?: No Living arrangement: At home Marital Status: Single Living Condition: With family Support Person: Yes Level: Independent Do you feel safe in your home environment?: Yes History of physical, verbal, emotional, or financial abuse?: No ETOH Use: None Substance Use: cannabis (any form) POLST Patient has POLST: No Results Lab Results Lab results reviewed: Yes 03/04/25 06:58 03/04/25 06:58 Other Lab Results: Lab Results x24hrs 03/04/25 03/04/25 Range/Units 10:00 06:58 WBC 7.5 (4.8-10.8) x10^3/uL RBC 4.47 (4.20-5.40) 10^6/uL Hgb 13.0 (12.0-16.0) g/dL Hct 39.9 (37.0-47.0) % MCV 89.3 (81.0-99.0) fL MCH 29.1 (27.0-31.0) pg MCHC 32.6 (32.0-36.0) g/dL RDW 12.9 (12.0-15.0) % Plt Count 186 (130-450) 10^3/uL MPV 10.2 (7.9-10.8) fL Neut # (Auto) Not Reportable Lymph # (Auto) Not Reportable [place] # (Auto) Not Reportable Eos # (Auto) Not Reportable Baso # (Auto) Not Reportable Absolute Nucleated RBC Not Reportable Total Counted 100 Band Neuts % (Manual) 22 H (0 - 10) % Reactive Lymphs % (Man) 3 % Abnorm Lymph % (Manual) 0 % Metamyelocytes % 2 H ( - 0) % Nucleated RBC % Not Reportable Neutrophils # (Manual) 6.8 H (1.5-6.6) 10^3/uL Lymphocytes # (Manual) 0.5 L (1.5-3.5) 10^3/uL Monocytes # (Manual) 0.0 (0.0-1.0) 10^3/uL Eosinophils # (Manual) 0.0 (0-0.7) 10^3/uL Basophils # (Manual) 0.0 (0-0.1) 10^3/uL Differential Comment MANUAL DIFFERENTIAL Manual Slide Review Indicated RBC Morph Micro Appear 1+ ANISOCYTOSIS (NORMAL) Bld Gas Analysis Time 1008 Sample Site RIGHT RADIAL ABG pH 7.42 (7.35-7.45) ABG pCO2 37 (34-45) mmHg ABG pO2 76 L (83-108) mmHg ABG HCO3 24.2 (22.0-26.0) mmol/L ABG Total CO2 25.3 (21.0-29.0) mmol/L ABG O2 Saturation 97 (95-98) % ABG Base Excess -0.6 (-2.0-3.0) mmol/L Ludin Test POSITIVE O2 Delivery Device NASAL CANNULA O2 Liters/Min 1.00 LPM Sodium 137 (135-145) mmol/L Potassium 3.3 L (3.5-4.5) mmol/L Chloride 104 (101-111) mmol/L Carbon Dioxide 28 (21-32) mmol/L Anion Gap 5.0 L (6-13) BUN 9 (6-20) mg/dL Creatinine 0.6 (0.6-1.3) mg/dL Estimated GFR (MDRD) 108 (>89) Glucose 211 H (74-104) mg/dL Calcium 8.8 (8.5-10.3) mg/dL Total Bilirubin 0.9 (0.2-1.0) mg/dL AST 31 (10-42) IU/L ALT 22 (10-60) IU/L Alkaline Phosphatase 108 (42-121) IU/L Total Protein 6.3 L (6.4-8.9) g/dL Albumin 3.4 (3.2-5.5) g/dL Globulin 2.9 (2.1-4.2) g/dL Albumin/Globulin Ratio 1.2 (1.0-2.2) Lipase 15 (11-82) U/L Serum HCG, Qual NEGATIVE Diagnostic Imaging Results Diagnostic Imaging Results: positive Final report reviewed Review of Systems Constitutional Reports: Weakness and Poor appetite; Denies: Fatigue, Fever, Chills or Malaise Eyes Denies: Pain, Irritation, Blurry vision, Vision loss, Diplopia or Eye discomfort Ears, nose, mouth, and throat Denies: Ear pain, Hearing loss, Tinnitus, Nose bleeds or Nasal discharge Cardiovascular Denies: Irregular heart rate, chest pain, palpitations, edema, Syncope or shortness of breath with exertion Respiratory Denies: Shortness of breath, Cough, Sputum production or Wheezing Gastrointestinal Reports: Abdominal pain and Nausea; Denies: Abdominal distention, Vomiting, Heartburn, Diarrhea or Constipation Genitourinary Denies: Painful urination, Urinary frequency or Urinary urgency Musculoskeletal Denies: Back pain, Extremity pain, Extremity swelling or Joint pain Integumentary/Breast Denies: Rash, Itching, Dryness, Redness or Skin pain Neurological Reports: General weakness; Denies: Headache, Weakness in extremities, Numbness in extremities, Abnormal gait or Dizziness Psychiatric Reports: Anxiety; Denies: Depression, Mood swings or Panic attacks Endocrine Denies: Excessive urination, Excessive thirst or Fatigue Hematologic/Lymphatic Denies: Anemia, Easy bruising or Easy bleeding Allergic/Immunologic Denies: Hives, Tongue swelling, Facial swelling or Wheezing Exam Exam Vital Signs: Vital Signs x48h Pulse Resp BP Pulse Ox O2 Flow Rate 03/04/25 15:00 82 30 H 111/72 96 2 03/04/25 13:00 108 H 32 H 112/68 96 2 03/04/25 11:28 72 16 110/76 98 03/04/25 11:00 78 32 H 128/80 97 2 03/04/25 09:00 108 H 37 H 130/69 95 2 03/04/25 07:37 106 H 26 H 114/59 L 93 Patient is very sleepy, she is falling asleep mid conversation. When she is awake, she needs to be prompted and redirected. She is following commands. Constitutional normal general appearance, no apparent distress, abnormal body habitus (obese) and no limitations HENMT normocephalic, head/scalp atraumatic and hearing grossly normal bilaterally Eyes PERRL, EOMs intact bilaterally and conjunctivae normal Neck/C-Spine visual inspection normal, trachea midline and cervical spine nontender Chest inspection of chest normal Respiratory breath sounds equal bilaterally, normal respiratory effort, clear to auscultation bilaterally, no wheezes, no rales and no retractions Cardiovascular heart rate abnormal (tachycardic), regular rhythm noted, no gallop, no rub and no murmur Gastrointestinal abdomen normal to inspection, abdomen soft to palpation, tender to palpation (RLQ) and normoactive bowel sounds Genitourinary no CVA tenderness and bladder normal to palpation Back/Pelvis spine normal to inspection, no thoracic spine tenderness and no lumbar spine tenderness Extremities normal to inspection, normal to palpation, no tenderness and full ROM Neurology no movement abnormality noted and no focal motor deficit noted Psychiatry oriented x3, cooperative and psychomotor abnormality noted (slow) Skin skin color normal, no rash, no lesions and no wounds Conclusion/Plan Problem List (1) Abdominal pain: Plan: Patient presents with abdominal pain. CT abdomen indicative of possible appendicitis. Outside records reviewedshe [facility] to 01/03[facility]2024. It was managed nonoperatively with IV Zosyn, and she was discharged home on Augmentin. At this time, she did have a leukocytosis, which she does not have now. General Surgery is following: They are ordering a repeat CT scan with oral contrast. Qualifiers: Abdominal location: unspecified location Qualified Code(s): R10.9 - Unspecified abdominal pain (2) Acute metabolic encephalopathy: Plan: Patient does have psychomotor slowing, and is lethargic at times. When spoken with, she needs reprompting and redirecting and falls asleep midsentence. She attributes this to not being able to sleep all night. ABG was completed, and does not show any CO2 retention. No focal deficits to elicit a head CT at this time. She did receive some IV Dilaudid, and droperidol which would be contributing to her altered mentation. Continue to monitor closely for any focal deficits. (3) SUELLEN (generalized anxiety disorder): Plan: Continue sertraline, which was started by her PCP on 02/04 for her generalized anxiety. (4) Diabetes mellitus with hyperglycemia: Plan: Patient is on metformin in the outpatient setting. If admitted, will continue low-dose sliding scale insulin. Qualifiers: Diabetes mellitus type: type 2 Diabetes mellitus watermaster insulin use: without watermaster use Qualified Code(s): E11.65 - Type 2 diabetes mellitus with hyperglycemia (5) Low back pain: Plan: Continue Tylenol versus Motrin at home, as she has been doing. Spine stimulator in place. Qualifiers: Back pain laterality: bilateral Chronicity: acute Sciatica laterality: bilateral sciatica Sciatica presence: with sciatica Qualified Code(s): M54.42 - Lumbago with sciatica, left side; M54.41 - Lumbago with sciatica, right side Lab Results Lab results reviewed: Yes 03/04/25 06:58 03/04/25 06:58 Diagnostic Imaging Results Diagnostic Imaging Results: positive Final report reviewed
[2025-03-04] MEDS ORDERED: DIATRIZOATE MEGLU/DIATRIZO SOD 30 ML BOTTLE PO ONE (13:55)
--- NOTE | 2025-03-04 13:57 | CONSULTATION NOTE ---
Referring Provider Name of Referring Provider:: Dr. Michael Reyes Consult Date: 03/04/25 Chief Complaint Chief Complaint Chief Complaint: Abdominal pain History of Present Illness Admitted From Admitted From:: ED History Obtained From Records Reviewed: Yes History obtained from: Primarily the chart and Dr. Reyes as patient's mentation precludes any m Exam Limitations: Patient's mentation precludes any meaningful conversation History of Present Illness HPI Comment/Other: Patient is a 44-year-old female who is evaluated in room 8 at [facility]'s emergency department at the request of Dr. Michael Reyes. My conversations with the patient involve her mumbling and although with a lot of direction I can get her to answer with her name and the fact that she is in a hospital in [place] it is impossible to have any meaningful conversation with her. Review of the chart states that she presented yesterday to the emergency department with a complaint of upper abdominal pain. It is unclear to me currently how she presented because her mentation is such that she would not be able to come to the hospital with this severely impaired mentation. She was unable to answer any other questions. She was either mumbling or snoring. Review of the chart indicates that she may have been seen approximately 1 year ago and treated with antibiotics for something similar and the "something similar" resolved with antibiotics in time. [facility] Active Problems All Active Problems (Updated 03/04/25 @ 13:53 by Michael Springer MD) Abdominal pain (Acute) Appendicitis (Acute) Intertrigo (Acute) Bilateral knee pain (Acute) SUELLEN (generalized anxiety disorder) (Acute) Mild intermittent asthma (Acute) Diabetes mellitus with hyperglycemia (Acute) Elmore's palsy (Acute) Trigeminal neuralgia (Acute) Dry eye (Acute) Low back pain (Chronic) Sciatica (Acute) Medical History Medical History (Updated 03/04/25 @ 13:53 by Michael Springer MD) Spinal cord mass s/p resection by dr. Peña, Last MRI 01/2025 - stable. Repeat Lumbar, Thoacic MRI in 01/2026 Trichomonas vaginitis Pneumonia Lumbar radiculopathy, acute Back pain Mass of spine UTI (urinary tract infection) Leg swelling Elevated heart rate with elevated blood pressure without diagnosis of hypertension Oral lesion Social History Social History (Updated 02/28/25 @ 15:27 by Johanna Marino Smoking Status: Never smoker Second hand tobacco smoke exposure: No Do you dip or chew tobacco?: No Do you vape?: No Living arrangement: At home Marital Status: Single Living Condition: With family Support Person: Yes Level: Independent Do you feel safe in your home environment?: Yes History of physical, verbal, emotional, or financial abuse?: No ETOH Use: None Substance Use: cannabis (any form) POLST Patient has POLST: No Meds/Allgy Home Medications Ambulatory Orders Medication Instructions Recorded Confirmed ibuprofen 200 mg tablet 200 mg PO Q6H PRN fever or p ain 09/12/24 03/04/25 carboxymethylcellulose sodium 1 % 1 drp ophthalmic (ey e) TID 30 days 11/13/24 02/28/25 eye drops (Artificial Tears #15 mL (carboxymethylcellulose)) cyclosporine 0.05 % eye drops in a 1 drp ophthalmic (e ye) Q12H #30 ea 11/19/24 03/04/25 dropperette albuterol sulfate 90 mcg/actuation 2 puff inhalation Q 4-6H PRN SOA 12/12/24 03/04/25 aerosol inhaler (ProAir HFA) #8.5 grams metformin 500 mg tablet 500 mg PO BID #180 tabs 12/3103/04/25 medroxyprogesterone 10 mg tablet 10 mg PO .COMPLEX #21 tabs 12/25/24 03/04/25 cyclobenzaprine 5 mg tablet 5 mg PO BID PRN muscle spa sm #60 02/04/25 03/04/25 tabs sertraline 50 mg tablet 50 mg PO QDAY #90 tabs 02/0403/04/25 nystatin 100,000 unit/gram topical 1 applic topical BI D #30 grams 02/05/25 03/04/25 cream Allergies Allergies Allergy/AdvReac Type Severity Reaction Status Date / Time No Known Drug Allergies Allergy Verified 03/04/25 05:39 Results Lab Results Lab results reviewed: Yes 03/04/25 06:58 03/04/25 06:58 Other Lab Results: Lab Results x24hrs 03/04/25 03/04/25 Range/Units 10:00 06:58 WBC 7.5 (4.8-10.8) x10^3/uL RBC 4.47 (4.20-5.40) 10^6/uL Hgb 13.0 (12.0-16.0) g/dL Hct 39.9 (37.0-47.0) % MCV 89.3 (81.0-99.0) fL MCH 29.1 (27.0-31.0) pg MCHC 32.6 (32.0-36.0) g/dL RDW 12.9 (12.0-15.0) % Plt Count 186 (130-450) 10^3/uL MPV 10.2 (7.9-10.8) fL Neut # (Auto) Not Reportable Lymph # (Auto) Not Reportable [place] # (Auto) Not Reportable Eos # (Auto) Not Reportable Baso # (Auto) Not Reportable Absolute Nucleated RBC Not Reportable Total Counted 100 Band Neuts % (Manual) 22 H (0 - 10) % Reactive Lymphs % (Man) 3 % Abnorm Lymph % (Manual) 0 % Metamyelocytes % 2 H ( - 0) % Nucleated RBC % Not Reportable Neutrophils # (Manual) 6.8 H (1.5-6.6) 10^3/uL Lymphocytes # (Manual) 0.5 L (1.5-3.5) 10^3/uL Monocytes # (Manual) 0.0 (0.0-1.0) 10^3/uL Eosinophils # (Manual) 0.0 (0-0.7) 10^3/uL Basophils # (Manual) 0.0 (0-0.1) 10^3/uL Differential Comment MANUAL DIFFERENTIAL Manual Slide Review Indicated RBC Morph Micro Appear 1+ ANISOCYTOSIS (NORMAL) Bld Gas Analysis Time 1008 Sample Site RIGHT RADIAL ABG pH 7.42 (7.35-7.45) ABG pCO2 37 (34-45) mmHg ABG pO2 76 L (83-108) mmHg ABG HCO3 24.2 (22.0-26.0) mmol/L ABG Total CO2 25.3 (21.0-29.0) mmol/L ABG O2 Saturation 97 (95-98) % ABG Base Excess -0.6 (-2.0-3.0) mmol/L Ludin Test POSITIVE O2 Delivery Device NASAL CANNULA O2 Liters/Min 1.00 LPM Sodium 137 (135-145) mmol/L Potassium 3.3 L (3.5-4.5) mmol/L Chloride 104 (101-111) mmol/L Carbon Dioxide 28 (21-32) mmol/L Anion Gap 5.0 L (6-13) BUN 9 (6-20) mg/dL Creatinine 0.6 (0.6-1.3) mg/dL Estimated GFR (MDRD) 108 (>89) Glucose 211 H (74-104) mg/dL Calcium 8.8 (8.5-10.3) mg/dL Total Bilirubin 0.9 (0.2-1.0) mg/dL AST 31 (10-42) IU/L ALT 22 (10-60) IU/L Alkaline Phosphatase 108 (42-121) IU/L Total Protein 6.3 L (6.4-8.9) g/dL Albumin 3.4 (3.2-5.5) g/dL Globulin 2.9 (2.1-4.2) g/dL Albumin/Globulin Ratio 1.2 (1.0-2.2) Lipase 15 (11-82) U/L Serum HCG, Qual NEGATIVE Diagnostic Imaging Results Diagnostic Imaging Results: positive Final report reviewed, Read independently and Read contemporaneously Diagnostic Imaging Results Comments: I went to radiology and reviewed the films with our radiologist today and it was my opinion and kind of confirmed by the radiologist that the diagnosis of appendicitis is really not very strong here. There is some inflammatory response in the right lower quadrant but this is not the classic finding. There is no appendicolith. There is not widespread fatty inflammation. There is a very small amount of free fluid in the pelvis. EKG Results EKG Interpreted Independently: No Review of Systems Impossible to obtain a review of systems due to patient's mentation. Exam Exam Vital Signs: Vital Signs x48h Pulse Resp BP Pulse Ox O2 Flow Rate 03/04/25 13:00 108 H 32 H 112/68 96 2 03/04/25 11:28 72 16 110/76 98 03/04/25 11:00 78 32 H 128/80 97 2 03/04/25 09:00 108 H 37 H 130/69 95 2 03/04/25 07:37 106 H 26 H 114/59 L 93 General: 44-year old morbidly obese female, appears older than stated age, either mumbling or snoring and only with shaking her shoulders and yelling at her am I able to get a response from her HEENT: Normocephalic, atraumatic, extraocular movement intact, mucous membranes pink and slightly dry, sclera anicteric and not injected Neck: Supple without pain or bruit Cardiac: Slightly tachycardic but regular rate and rhythm without rub, gallop, or murmur, PMI is displaced laterally but this is difficult to appreciate due to patient's body habitus Chest: Coarse bilaterally Abdomen: Soft, decreased bowel sounds, patient complains of pain with palpation throughout the abdomen without localization, patient's body habitus precludes evaluation for hepatomegaly or splenomegaly Genitourinary: Deferred Rectal: Deferred Extremities: Could not get patient to follow commands with regards to motion Gait: Did not evaluate as patient is on a gurney Psychiatric: Alert and oriented to person and place, does not ask and answer questions appropriately or spontaneously, patient is somnolent and is either snoring or mumbling Conclusion/Plan Problem List (1) Abdominal pain: Plan This is not the classic presentation of appendicitis. Yes her appendix is little bit generous on the CT scan but there is no appendicolith and there is no significant inflammation around the appendix. Prophylactically antibiotics have been given. I have ordered a CT scan of the abdomen and pelvis to be done with oral contrast for several reasons 1 it will tell us if there is any inflammation within the bowel itself 2 if the appendix fills with contrast then this is not appendicitis 3 if there is any leak of the contrast it will tell us where the leak is occurring. The patient's mentation is not such that she can drink the contrast. As such I will have an NG placed and confirmed prior to placing the contrast down the NG. I will reevaluate the patient after the CT scan is repeated to see if we are any closer to a diagnosis. I wish to thank Dr. Michael Reyes very much for this very interesting consult and to allow me to participate in this lady's care. 60 minutes of [id number] time was spent with the patient, reviewing the chart, speaking with radiology, speaking with the hospitalist with regards to their opinion on her diagnosis and care, and completing this note CPT 60252 Lab Results Lab results reviewed: Yes 03/04/25 06:58 03/04/25 06:58 Diagnostic Imaging Results Diagnostic Imaging Results: positive Final report reviewed, Read independently and Read contemporaneously EKG Results EKG Interpreted Independently: No
--- NOTE | 2025-03-04 16:25 | CT Report ---
PROCEDURE: CT Abdomen/Pelvis WO INDICATIONS: Abdominal pain and bandemia - normal WBC TECHNIQUE: A CT scan of the abdomen and pelvis was performed without the use of intravenous contrast. Images were recorded and evaluated at appropriate window settings. Reformats: coronal and sagittal. For radiation dose reduction, the following was used: automated exposure control, adjustment of mA and/or kV according to patient size. COMPARISON: 03/04/2025 at 0815 hours.. FINDINGS: Image quality: Diagnostic. Lower chest: Unremarkable. Liver: No contour-deforming mass. Gallbladder: No radiopaque stones or wall thickening. Biliary tree: No intrahepatic or extrahepatic dilation, accounting for age. Spleen: No splenomegaly. Pancreas: No pancreatic ductal dilation. Adrenals: No adrenal nodule. Kidneys and ureters: No hydronephrosis. No contour-deforming mass. Stomach, bowel and peritoneum: Developing ileus pattern. No abnormal wall thickening. Again noted is a dilated fluid-filled appendix with inflammatory change in the adjacent fat. Findings remain consistent with acute appendicitis. Small pelvic fluid, as before. Lymph nodes: No central or retroperitoneal adenopathy. Vessels: No infrarenal aortic aneurysm. Reproductive organs: Unremarkable. Bladder: No abnormal bladder wall thickening. No calcified bladder stones. Pelvic lymph nodes: No adenopathy by size criteria. Bones: No aggressive osseous abnormality. Other: No significant ventral or inguinal hernia. IMPRESSION: As before, findings are consistent with acute appendicitis. Developing ileus pattern. Reviewed by: Anupam Fernando MD on 03/04/2025 4:23 PM PDT Approved by: Anupam Fernando MD on 03/04/2025 4:23 PM PDT Station ID: [id number]
--- NOTE | 2025-03-04 16:52 | ED Physician Documentation ---
ED Addendum Addendum Addendum: Patient was signed out to me by Dr. Reyes awaiting repeat evaluation by Dr. Springer at 1620. Her repeat CT still shows acute appendicitis. She is tender in the right lower quadrant. Recontacted Dr. Springer who will come reevaluate the patient. Second dose of Zosyn given. IV fluids given. Dr. Springer came and reevaluated the patient, will take to the operating room. This document was made in part using voice recognition software. While efforts are made to proofread this document, sound alike and grammatical errors may occur. Discharge Plan Discharge Patient Disposition: ED Transfer to [facility] Condition: Fair Clinical Impression: Appendicitis Qualifiers: Appendicitis type: acute appendicitis Acute appendicitis type: with generalized peritonitis Appendicitis gangrene presence: unspecified whether gangrene present Appendicitis perforation presence: unspecified whether perforation present Appendicitis abscess presence: unspecified whether abscess present Qualified Code(s): K35.209 - Acute appendicitis with generalized peritonitis, without abscess, unspecified as to perforation Prescriptions: No Action cyclosporine 0.05 % dropperette 1 drp ophthalmic (eye) Q12H Qty: 30 2RF albuterol sulfate [ProAir HFA] 90 mcg/actuation HFA aerosol inhaler 2 puff inhalation Q4-6H PRN (Reason: SOA) Qty: 8.5 3RF metformin 500 mg tablet 500 mg PO BID Qty: 180 3RF medroxyprogesterone 10 mg tablet 10 mg PO .COMPLEX Qty: 21 3RF Rx Instructions: 10 mg orally Qday for seven days each month; nystatin 100,000 unit/gram cream 1 applic topical BID Qty: 30 2RF Patient Comments: APPLY SMALL AMOUNT TOPICALLY TO THE AFFECTED AREA TWICE DAILY Artificial Tears (cmc) 1 % drops 1 drp ophthalmic (eye) TID 30 Days Qty: 15 2RF Rx Instructions: into left eye sertraline 50 mg tablet 50 mg PO QDAY Qty: 90 1RF cyclobenzaprine 5 mg tablet 5 mg PO BID PRN (Reason: muscle spasm) Qty: 60 1RF ibuprofen 200 mg tablet 200 mg PO Q6H PRN (Reason: fever or pain) Print Language: Gibraltarian Stand Alone Forms: PCP List
[2025-03-04] MEDS ORDERED: SUCCINYLCHOLINE 200 MG/10 ML VIAL ONE (18:59)
[2025-03-04] MEDS ORDERED: PROPOFOL 200 MG/20 ML VIAL IVP ONE (19:02)
[2025-03-04] MEDS ORDERED: ROCURONIUM 50 MG/5 ML VIAL ONE ×2 (19:03→20:14)
[2025-03-04] MEDS ORDERED: fentaNYL 100 MCG/2 ML VIAL ONE (19:04)
--- NOTE | 2025-03-04 19:20 | ANESTHESIA PROCEDURE NOTE ---
Pre-Anesthesia VS, & Labs Diagnosis Surgical Diagnosis:: Acute appendicitis Procedure Procedure: Lap appendecomy Vitals Vital Signs: Temp Pulse Resp BP Pulse Ox O2 Flow Rate 37.2 C 115 H 36 H 130/83 94 2 03/04/25 05:33 03/04/25 17:00 03/04/25 17:00 03/04/25 17:00 03/04/25 17:00 03/04/25 17:00 NPO Last Fluid Intake: oral contrast 1600 Is Patient ?: No Lab Results Current Lab Results: Laboratory Tests 03/04/25 10:00: Bld Gas Analysis Time 1008, Sample Site RIGHT RADIAL, ABG pH 7.42, ABG pCO2 37, ABG pO2 76 L, ABG HCO3 24.2, ABG Total CO2 25.3, ABG O2 Saturation 97, ABG Base Excess -0.6, Ludin Test POSITIVE, O2 Delivery Device NASAL CANNULA, O2 Liters/Min 1.00 03/04/25 06:58: WBC 7.5, RBC 4.47, Hgb 13.0, Hct 39.9, MCV 89.3, MCH 29.1, MCHC 32.6, RDW 12.9, Plt Count 186, MPV 10.2, Neut # (Auto) Not Reportable, Lymph # (Auto) Not Reportable, [place] # (Auto) Not Reportable, Eos # (Auto) Not Reportable, Baso # (Auto) Not Reportable, Absolute Nucleated RBC Not Reportable, Total Counted 100, Band Neuts % (Manual) 22 H, Reactive Lymphs % (Man) 3, Abnorm Lymph % (Manual) 0, Metamyelocytes % 2 H, Nucleated RBC % Not Reportable, N eutrophils # (Manual) 6.8 H, Lymphocytes # (Manual) 0.5 L, Monocytes # (Manual) 0.0, Eosinophils # (Manual) 0.0, Basophils # (Manual) 0.0, Differential Comment MANUAL DIFFERENTIAL, Manual Slide Review Indicated, RBC Morph Micro Appear 1+ ANISOCYTOSIS, Sodium 137, Potassium 3.3 L, Chloride 104, Carbon Dioxide 28, A nion Gap 5.0 L, BUN 9, Creatinine 0.6, Estimated GFR (MDRD) 108, Glucose 211 H, Calcium 8.8, Total Bilirubin 0.9, AST 31, ALT 22, Alkaline Phosphatase 108, T otal Protein 6.3 L, Albumin 3.4, Globulin 2.9, Albumin/Globulin Ratio 1.2, Lipase 15, Serum HCG, Qual NEGATIVE Lab results reviewed: Yes 03/04/25 06:58 03/04/25 06:58 Meds/Allgy Home Medications Ambulatory Orders Medication Instructions Recorded Confirmed ibuprofen 200 mg tablet 200 mg PO Q6H PRN fever or p ain 09/12/24 03/04/25 carboxymethylcellulose sodium 1 % 1 drp ophthalmic (ey e) TID 30 days 11/13/24 02/28/25 eye drops (Artificial Tears #15 mL (carboxymethylcellulose)) cyclosporine 0.05 % eye drops in a 1 drp ophthalmic (e ye) Q12H #30 ea 11/19/24 03/04/25 dropperette albuterol sulfate 90 mcg/actuation 2 puff inhalation Q 4-6H PRN SOA 12/12/24 03/04/25 aerosol inhaler (ProAir HFA) #8.5 grams metformin 500 mg tablet 500 mg PO BID #180 tabs 12/3103/04/25 medroxyprogesterone 10 mg tablet 10 mg PO .COMPLEX #21 tabs 12/25/24 03/04/25 cyclobenzaprine 5 mg tablet 5 mg PO BID PRN muscle spa sm #60 02/04/25 03/04/25 tabs sertraline 50 mg tablet 50 mg PO QDAY #90 tabs 02/0403/04/25 nystatin 100,000 unit/gram topical 1 applic topical BI D #30 grams 02/05/25 03/04/25 cream Allergies Allergies Allergy/AdvReac Type Severity Reaction Status Date / Time No Known Drug Allergies Allergy Verified 03/04/25 05:39 PFSH Active Problems All Active Problems (Updated 03/04/25 @ 19:19 by Mary Kay Bailey CRNA) Acute metabolic encephalopathy (Acute) Abdominal pain (Acute) Appendicitis (Acute) Intertrigo (Acute) Bilateral knee pain (Acute) SUELLEN (generalized anxiety disorder) (Acute) Mild intermittent asthma (Acute) Diabetes mellitus with hyperglycemia (Acute) Elmore's palsy (Acute) Trigeminal neuralgia (Acute) Dry eye (Acute) Low back pain (Chronic) Sciatica (Acute) Medical History Medical History (Updated 03/04/25 @ 19:19 by Mary Kay Bailey CRNA) Spinal cord mass s/p resection by dr. Peña, Last MRI 01/2025 - stable. Repeat Lumbar, Thoacic MRI in 01/2026 Trichomonas vaginitis Lumbar radiculopathy, acute Back pain Mass of spine UTI (urinary tract infection) Leg swelling Elevated heart rate with elevated blood pressure without diagnosis of hypertension Oral lesion Surgical History Surgical History (Updated 03/04/25 @ 19:19 by Mary Kay Bailey CRNA) Personal history of spine surgery Social History Social History (Updated 02/28/25 @ 15:27 by Johanna Viramontes) Smoking Status: Never smoker Second hand tobacco smoke exposure: No Do you dip or chew tobacco?: No Do you vape?: No Living arrangement: At home Marital Status: Single Living Condition: With family Support Person: Yes Level: Independent Do you feel safe in your home environment?: Yes History of physical, verbal, emotional, or financial abuse?: No ETOH Use: None Substance Use: cannabis (any form) POLST Patient has POLST: No Anesthesia Exam (Expanded) Exam General: Oriented x3 and Cooperative (slow to respond, falls asleep during interview. See internal medicine note. ) Dental: WNL Mouth Openin Fingerbreadth Neck Mobility: Reduced Mallampati classification: II Thyromental Distance: 4-6 cm Respiratory: Lungs clear Cardiovascular: Regular rate, Normal S1 and Normal S2 Exam Exam Vital Signs: Vital Signs x48h Pulse Resp BP Pulse Ox O2 Flow Rate 03/04/25 17:00 115 H 36 H 130/83 94 2 03/04/25 15:00 82 30 H 111/72 96 2 03/04/25 13:00 108 H 32 H 112/68 96 2 03/04/25 11:28 72 16 110/76 98 Plan Plan Anesthesia Type: General Consent for Procedure(s) Verified and Reviewed: Yes Code Status: Attempt Resuscitation ASA Classification ASA classification: 3-Severe systemic disease Is this case an emergency?: Yes
[2025-03-04] MEDS ORDERED: PHENYLEPHRINE HCL 0.5 MG/5 ML AMPULE ONE (19:55)
[2025-03-04] MEDS ORDERED: ACETAMINOPHEN 1,000 MG/100 ML 1,000 MG/100 ML BAG IV ONE (19:58)
[2025-03-04] MEDS ORDERED: PHENYLEPHRINE 10 MG/ML VIAL ONE (20:02)
[2025-03-04] MEDS ORDERED: MORPHINE 2 MG/ML CARPUJECT IVP PRN (20:35)
[2025-03-04] MEDS ORDERED: ONDANSETRON 4 MG/2 ML VIAL IVP PRN ×2 (20:35→21:23)
[2025-03-04] MEDS ORDERED: HYDROmorphone 0.5 MG/0.5 ML SYRINGE IVP PRN ×2 (20:35→21:23)
[2025-03-04] MEDS ORDERED: ATROPINE ABBOJECT 1 MG/10 ML SYRINGE IVP PRN (20:35)
[2025-03-04] MEDS ORDERED: fentaNYL 100 MCG/2 ML VIAL IVP PRN (20:35)
[2025-03-04] MEDS ORDERED: NALOXONE 0.4 MG/ML VIAL IVP PRN (20:35)
[2025-03-04] MEDS ORDERED: SUGAMMADEX 200 MG/2 ML VIAL IVP ONE (20:42)
[2025-03-04] MEDS ORDERED: KETOROLAC 30 MG/ML VIAL ONE (20:57)
--- NOTE | 2025-03-04 21:23 | OPERATIVE REPORT ---
Operative Report General Procedure Data: Operation Date: 03/04/25 19:15 Proposed Procedures p Laparoscopic Appendectomy(Not Applicable) - Michael Springer MD Actual Procedures p Laparoscopic Appendectomy W/DRAIN PLACEMENT, ABDOMINAL WASHOUT(Not Applicable) - Michael Springer MD Pre-Op Diagnosis: ACUTE APPENDICITIS Anesthesia Type General Case Staff Anesthesia Provider: Mary Kay Bailey Case Times Procedure Start: 03/04/25 20:11 Time out: 03/04/25 20:10 Other Other Information/Narrative: Patient Name: Dariela Cheung Patient date: 1980 Patent MR number: [id number] Date of procedure: 03/04/2025 Preoperative Diagnosis/Indications: Acute appendicitis Postoperative Diagnosis: Retrocecal acute suppurative appendicitis Procedure: Laparoscopic appendectomy, CPT 29787 Fluids: 1200 mL EBL: 5 mL Urine output: Hunt in place please look at anesthesia record Drains: 19 Cuban Porter drain placed in the right gutter Findings: Acute suppurative retrocecal appendicitis Complications: None Surgeon/Dictated by: Michael Springer MD Musical String Maker: Mohan Bailey CRNA Anesthesia type: General Endotracheal +30 mL half percent Marcaine with epinephrine Procedure: After verbal and written informed consent was obtained detailing the operation, the alternatives the operation including no operation, risks of infection, bleeding requiring transfusion with its risks, nerve injury, and and after I met with the patient confirming the surgery and the site of surgery, the klaus ent was brought to the operative suite and placed supine on the operating table. Great care was taken to avoid pressure points to prevent pressure necrosis or nerve injury. Monitoring devices were applied along with TEDs and pneumatic compression stockings (to prevent DVT). An intravenous line was started and anesthesia was maintained throughout the case. The patient was monitored for cardiac, blood pressure, and oxygen saturation continuously. The patient received preoperative antibiotics for surgical prophylaxis. Mohan Bailey CRNA sedated and anesthetized the patient for the entire procedure. The patient was prepped and draped in the usual sterile manner. A "time in" then confirmed that the patient was identified with 3 identifiers (name, date, and medical record number), the history and physical was updated and in the chart, the signed consent confirming the procedure was in the chart, the patient was in the correct position, the aforementioned prophylactic measures were in place or given, we had the correct personnel and equipment to complete the procedure and that anesthesia and the surgical team were given an opportunity to express any concerns. With the agreement of everyone in the room we proceeded with the operation. The initial incision was transverse at the umbilicus and dissection to the linea alba was completed using blunt dissection. The linea alba was grasped with a Lorenzo and incised. In a similar manner the peritoneum was grasped and incised using Metzenbaum scissors. In this location, a 12 mm blunt tipped, balloon tipped port was placed and the balloon was inflated to keep the port in position. The abdominal cavity was insufflated with carbon dioxide to a steady- state pressure of 15 mmHg. 2 additional 5 mm ports were placed in standard locations for laparoscopic appendectomy (above and below the umbilicus at the midline for the superior port and to the patient's right due to adhesions) under direct vision of the 30 degree laparoscope and without incident. The patient was then placed in Trendelenburg position and was rotated slightly to their left. Examination of the right lower quadrant revealed a thickened and clearly infe cted/inflamed appendix with fibrinous exudate. This was carefully grasped to avoid rupture and the appendiceal mesentery was taken using sequential application of the LigaSure. Once the base of the appendix was encountered the appendix was transected using a laparoscopic DENICE stapler with a GI load that had been placed through the umbilical port and the camera was switched to a 5 mm camera and placed through one of the 5 mm ports. Examination of the staple line noted to be intact without leak or bleeding. An Endopouch was placed through the umbilical port and the appendix was placed into the Endopouch and the Endopouch was secured. The left right lower quadrant was then copiously irrigated using 6 L of warm sterile saline. I placed a 19 Cuban Porter drain through the inferior incision and directed it along the right gutter. I secured it to the skin using a 3-0 nylon which was Espinoza sandaled about the drain I injected the port sites at the peritoneal, fascial, and skin levels under direct vision with 0.5% Marcaine. All ports and the Endopouch containing the appendix were removed. Following appendiceal removal, the remaining carbon dioxide was expelled from the abdomen. The fascia the umbilicus was approximated using 3 [id number] 0 Vicryl sutures. The skin at each port site was approximated using a subcuticular 4-0 Monocryl. The skin was cleaned of its prep and Dermabond was applied. The drain was placed to grenade suction. At this point a "timeout" was performed that confirmed that all counts were correct, the procedure that was performed, the blood loss, the IV fluids administered, the patient's condition and any concerns of the operating team had. Dressings were then applied. Having tolerated the procedure well, the patient was extubated and taken to recovery room in good and stable condition. The patient will be brought in overnight due to the suppurative nature of the gallbladder for additional IV antibiotics as well as a recheck of her labs in the morning. Additionally I expect the pain control may be a bit of an issue. Today's documentation has been created with the assistance of voice recognition software. Therefore, it may contain anomalous punctuation, anomalous independent mis-recognitions, word substitutions, insertions or omissions. Occasional wrong-word or phonetically similar substitutions may also occur all due to the inherent limitations of voice recognition software. I have attempted to correct the above but I recommend that the chart be read carefully to recognize, using context, where the substitutions, insertions or omissions may have occurred.
[2025-03-04] MEDS ORDERED: ALBUTEROL SULFATE INH PRN (21:28)
[2025-03-04] MEDS ORDERED: ALBUTEROL 6.7 GM INHALER INH PRN (21:44)
[2025-03-04] MEDS: LACTATED RINGERS 1,000 ML IV SCH (21:58)
[2025-03-04] MEDS ORDERED: SERTRALINE 50 MG TABLET PO SCH (22:00)
--- NOTE | 2025-03-04 22:04 | ANESTHESIA POST OP EVALUATION ---
Anesthesia Post Eval Post Anesthesia Eval Vitals: Last Vital Signs Temp 36.8 C 03/04/25 21:25 Pulse 99 03/04/25 21:50 Resp 26 H 03/04/25 21:50 BP 103/59 L 03/04/25 21:50 Pulse Ox 96 03/04/25 21:50 O2 Flow Rate 2 03/04/25 17:00 CV Function Including HR & BP: Stable Pain Control: Satisfactory Nausea & Vomiting: Negative Mental Status: Baseline (She remains lethargic but arousable. Answers questions appropriately) Respiratory Status: Airway Patent Hydration Status: Satisfactory Anesthesia Complications: None
[2025-03-04] MEDS: CARBOXYMETHYLCELLULOSE OPHTH DROPS EACHEYE SCH (22:24)
[2025-03-04] MEDS: PIPERACILLIN/TAZOBACTAM 3.375 GM in SODIUM CHLORIDE 0.9% MINIBAG 100 ML IV SCH (22:30)
[2025-03-05] MEDS: HYDROcod/ACETAM 5/325 MG TABLET PO PRN (04:43)
[2025-03-05 06:07] LABS: HCT - HEMATOCRIT 35.2 % (37.0-47.0); HGB - HEMOGLOBIN 11.4 g/dL (12.0-16.0); MEAN PLATELET VOLUME 10.1 fL (7.9-10.8); NRBC ABSOLUTE COUNT (AUTO) 0.00 x10^3/uL; NUCLEATED RED BLOOD CELLS AUTO 0.0 /100WBC; PLT - PLATELET COUNT 144 10^3/uL (130-450); RED CELL DISTRIBUTION WIDTH 13.4 % (12.0-15.0)
[2025-03-05 06:28] LABS: ALT ALANINE AMINOTRANSFERASE 19.0 IU/L (10-60); AST ASPARTATE AMINOTRANSFERASE 16.0 IU/L (10-42); BUN - BLOOD UREA NITROGEN 9.0 mg/dL (6-20); CARBON DIOXIDE - CO2 27.0 mmol/L (21-32); CREATININE 0.5 mg/dL (0.6-1.3); GFR - MDRD 133.0 (>89)
[2025-03-05 08:39] LABS: ESTIMATED AVERAGE GLUCOSE 272 mg/dL (70-100); HEMOGLOBIN A1c% 11.1 % (4.27-6.07)
[2025-03-05] MEDS: NYSTATIN CREAM 15 GM TUBE TOP SCH (09:02)
[2025-03-05] MEDS: CYCLOSPORINE 0.05% EACHEYE SCH (09:03)
[2025-03-05] MEDS: POTASSIUM CHLORIDE 20 MEQ TABLET PO ONE (09:03)
[2025-03-05] MEDS: SERTRALINE 50 MG TABLET PO SCH (09:03)
--- NOTE | 2025-03-05 13:33 | PROVIDER PROGRESS NOTE ---
Subjective Subjective Subjective: Patient is very sleepy. She wakes up and then goes back to sleep mid- conversation. When she's awake and conversive, she does not answer questions directly. We talked about her diabetes. I asked her what she takes for it. She said 'nothing.' I asked her why she wasn't taking her metformin. She said she didn't know. She does not endorse any side effects from it, including any GI upset. I asked her what her typical diet looks like, and she was unable to answer. She states she's very tired. She does not know why. She states her back always hurts. Current Medications Current Medications Current Medications: Current Medications Generic Name Dose Route Start Last Admin Trade Name Freq PRN Reason Stop Dose Admin Hydrocodone Bitart/Acetaminophen 1 tab 03/04/25 21:23 03/05/25 13:20 Hydrocod/Acetam 5/325 Mg Tablet PO 1 tab Q4HR PRN Administration Moderate Pain (Level 4-6) Albuterol 2.5 mg 03/05/25 07:15 Albuterol Neb 2.5 Mg/3 Ml INH RTQ4H PRN Wheezing Carboxymethylcellulose 1 drops 03/04/25 22:00 03/05/25 13:20 Carboxymethylcellulose Ophth Drops EACHEYE 1 drops TID SERENA Administration Cyclobenzaprine HCl 5 mg 03/04/25 21:28 Cyclobenzaprine 10 Mg Tablet PO BID PRN muscle spasm Hydromorphone HCl 0.5 mg 03/04/25 21:23 Hydromorphone 0.5 Mg/0.5 Ml Syringe IVP Q30M PRN Severe Breakthrough pain(7-10) Piperacillin Sod/Tazobactam 100 mls @ 200 mls/hr 03/04/25 22:00 03/05/25 09:40 Sod 3.375 gm/ Sodium Chloride IV Infused Q6H SERENA Infusion Insulin Human Lispro 1 - 5 unit 03/05/25 17:00 Insulin Lispro 300 Unit/3 Ml Pen SUBQ 0800,1200,1700,2100 [facility] Protocol Insulin Human Lispro 4 unit 03/05/25 14:00 Insulin Lispro 300 Unit/3 Ml Pen SUBQ 03/05/25 14:01 ONCE ONE Medroxyprogesterone Acetate 10 mg 03/04/25 22:00 Medroxyprogesterone 2.5 Mg Tablet PO .COMPLEX SERENA Nystatin 1 applic 03/05/25 09:00 03/05/25 09:02 Nystatin Cream 15 Gm Tube TOP 1 applic BID SERENA Administration Ondansetron HCl 4 mg 03/04/25 21:23 Ondansetron 4 Mg/2 Ml Vial IVP Q6HR PRN Nausea / Vomiting Patient Own Med ( 1 each 03/05/25 08:00 03/05/25 09:03 Cyclosporine 0.05 % EACHEYE Not Given Dropperette) Q12H SERENA Sertraline HCl 50 mg 03/05/25 09:00 03/05/25 09:03 Sertraline 50 Mg Tablet PO 50 mg DAILY SERENA Administration Objective Vital Signs/Intake & Output Reviewed Vital Signs: Yes Vital Signs: Vital Signs x48h Temp Pulse Resp BP Pulse Ox 03/05/25 07:58 98.8 F 93 18 95/63 93 Intake & Output: Intake & Output 03/02/25 03/03/25 03/04/25 03/05/25 23:59 23:59 23:59 23:59 Intake Total 6800 / 6800 800 / 800 Output Total 310 / 310 330 / 330 Balance 6490 / 6490 470 / 470 Weight (kg) 119.4 kg Objective General Appearance: positive No acute distress and Lethargic; negative Anxious Eyes Bilateral: positive Normal inspection, PERRL and EOMI ENT: positive ENT inspection nml, Pharynx nml and No signs of dehydration Neck: positive Nml inspection, Thyroid nml and No JVD Respiratory: positive Chest non-tender, No respiratory distress and Breath sounds nml; negative Wheezes, Rales or Rhonchi Cardiovascular: positive Regular rate & rhythm, No murmur and No gallop; negative Tachycardia or Systolic murmur Abdomen: positive Tenderness (RLQ; improved); negative Rebound or Mass Back: positive Nml inspection; negative CVA tenderness (R) or CVA tenderness (L) Skin: positive Color nml, No rash, Warm and Dry Extremities: positive Non-tender, Full ROM, Nml appearance and No pedal edema Neurologic/Psychiatric: positive Oriented x3, Motor nml and Mood/affect nml Lab Results 03/05/25 05:52 03/05/25 05:52 Other Labs: Lab Results x24hrs 0803/05/25 03/04/25 Range/Units 12:15 05:52 21:29 WBC 7.9 (4.8-10.8) x10^3/uL RBC 3.87 L (4.20-5.40) 10^6/uL Hgb 11.4 L (12.0-16.0) g/dL Hct 35.2 L (37.0-47.0) % MCV 91.0 (81.0-99.0) fL MCH 29.5 (27.0-31.0) pg MCHC 32.4 (32.0-36.0) g/dL RDW 13.4 (12.0-15.0) % Plt Count 144 (130-450) 10^3/uL MPV 10.1 (7.9-10.8) fL Neut # (Auto) 6.8 H (1.5-6.6) 10^3/uL Lymph # (Auto) 0.6 L (1.5-3.5) 10^3/uL [place] # (Auto) 0.4 (0.0-1.0) 10^3/uL Eos # (Auto) 0.0 (0.0-0.7) 10^3/uL Baso # (Auto) 0.0 (0.0-0.1) 10^3/uL Absolute Nucleated RBC 0.00 x10^3/uL Nucleated RBC % 0.0 /100WBC Sodium 137 (135-145) mmol/L Potassium 3.2 L (3.5-4.5) mmol/L Chloride 106 (101-111) mmol/L Carbon Dioxide 27 (21-32) mmol/L Anion Gap 4.0 L (6-13) BUN 9 (6-20) mg/dL Creatinine 0.5 L (0.6-1.3) mg/dL Estimated GFR (MDRD) 133 (>89) Glucose 211 H (74-104) mg/dL POC Whole Bld Glucose 257 210 (70-100) mg/dL Estimat Average Glucose 272 H (70-100) mg/dL Hemoglobin A1c % 11.1 H (4.27-6.07) % Calcium 7.7 L (8.5-10.3) mg/dL Total Bilirubin 0.7 (0.2-1.0) mg/dL AST 16 (10-42) IU/L ALT 19 (10-60) IU/L Alkaline Phosphatase 88 (42-121) IU/L Ammonia 54.9 (18-72) umol/L Total Protein 5.5 L (6.4-8.9) g/dL Albumin 2.8 L (3.2-5.5) g/dL Globulin 2.7 (2.1-4.2) g/dL Albumin/Globulin Ratio 1.0 (1.0-2.2) Assessment/Plan Problem List (1) Appendicitis: Impression: Patient presented with abdominal pain. CT abdomen indicative of possible appendicitis. Outside records reviewedshe had a similar [facility] 01[facility] to 01/03/2024. It was managed nonoperatively with IV Zosyn, and she was discharged home on Augmentin. This time, she was taken to the OR. Lap appe was completed on 03/04. Pain is well managed with Tylenol and [place] as needed. She has not required Dilaudid today. After surgery, even prior, patient was very lethargic. She states that she is very tired. She is having a hard time getting out of bed. PT is ordered. Qualifiers: Acute appendicitis type: with generalized peritonitis Appendicitis abscess presence: unspecified whether abscess present Appendicitis gangrene presence: unspecified whether gangrene present Appendicitis perforation presence: unspecified whether perforation present Appendicitis type: acute appendicitis Qualified Code(s): K35.209 - Acute appendicitis with generalized peritonitis, without abscess, unspecified as to perforation (2) Acute metabolic encephalopathy: Impression: Improving. Patient does have psychomotor slowing, and is lethargic at times. When spoken with, she needs reprompting and redirecting and falls asleep midsentence. She attributes this to not being able to sleep all night. ABG was completed, and does not show any CO2 retention. No focal deficits to elicit a head CT at this time. Continue to monitor closely for any focal deficits. (3) SUELLEN (generalized anxiety disorder): Impression: Continue sertraline, which was started by her PCP on 02/04 for her generalized anxiety. (4) Diabetes mellitus with hyperglycemia: Impression: Her A1c is 11%. She is supposed to be on metformin in the outpatient setting, but she said she has not been taking it for months. When asked why, she is not able to quantify it. Her dietitian spoke with her, and counseled her, she had referral to the program last year but did not attend. I do not believe she will be able to handle taking insulin at home. Will start with just metformin, dietary changes on discharge. She will need very close follow-up with her PCP in the outpatient setting. She was also heavily encouraged to continue with the diabetic program offered here at this hospital. Qualifiers: Diabetes mellitus long-term insulin use: without long-term use Diabetes mellitus type: type 2 Qualified Code(s): E11.65 - Type 2 diabetes mellitus with hyperglycemia (5) Low back pain: Impression: Continue Tylenol versus Motrin at home, as she has been doing. Spine stimulator in place. Qualifiers: Back pain laterality: bilateral Chronicity: acute Sciatica laterality: bilateral sciatica Sciatica presence: with sciatica Qualified Code(s): M54.42 - Lumbago with sciatica, left side; M54.41 - Lumbago with sciatica, right side
[2025-03-05] MEDS: ALBUTEROL NEB 2.5 MG/3 ML INH PRN (13:46)
[2025-03-05] MEDS: INSULIN LISPRO 300 UNIT/3 ML PEN SUBQ ONE (14:04)
[2025-03-05] MEDS: INSULIN LISPRO 300 UNIT/3 ML PEN SUBQ SCH (17:19)
[2025-03-05] MEDS: ACETAMINOPHEN 500 MG TABLET PO SCH (20:26)
[2025-03-05] MEDS: CYCLOBENZAPRINE 10 MG TABLET PO PRN (20:26)
--- NOTE | 2025-03-05 20:59 | PROVIDER PROGRESS NOTE ---
Subjective General Admit Date: 03/05/25 Procedure Date: 03/04/25 Post Op Days: 1 Procedure Performed: Laparoscopic appendectomy Wound Assessment Drain Type: 19 Fr Porter Drain Output Description: Serosanguinous Review of Systems Impossible to obtain a review of systems due to patient's mentation and complete lack of cooperation. Exam Exam Vital Signs: Vital Signs x48h Temp Pulse Pulse Resp BP Pulse Ox 03/05/25 15:48 37.2 C 102 H 15 124/75 97 03/05/25 13:50 95 20 03/05/25 13:00 37.0 C 96 14 116/65 94 General: 44-year old morbidly obese female, appears older than stated age, only mildly more responsive than yesterday - tells me that she wants ice chips then refuses to talk further or get out of bed HEENT: Normocephalic, atraumatic, extraocular movement intact, mucous membranes pink and slightly dry, sclera anicteric and not injected Neck: Supple without pain or bruit Cardiac: Slightly tachycardic but regular rate and rhythm without rub, gallop, or murmur, PMI is displaced laterally but this is difficult to appreciate due to patient's body habitus Chest: Coarse bilaterally Abdomen: Soft, decreased bowel sounds, patient complains of pain with palpation throughout the abdomen without localization, patient's body habitus precludes evaluation for hepatomegaly or splenomegaly, drain in place inferiorly, other 2 wounds well approximated Genitourinary: Deferred Rectal: Deferred Extremities: Could not get patient to follow commands with regards to motion Gait: Did not evaluate as patient is on a ghospital bed and is completely non- cooperative Psychiatric: Alert and oriented to person and place, does not ask and answer questions appropriately or spontaneously, patient is somnolent and is either snoring or mumbling ABX Reporting Has patient been on IV antibiotics over the past 48 hours?: Yes Impression/Plan Problem List (1) Acute metabolic encephalopathy: (2) SUELLEN (generalized anxiety disorder): (3) Diabetes mellitus with hyperglycemia: Qualifiers: Diabetes mellitus type: type 2 Diabetes mellitus assisted insulin use: without truck terminal manager use Qualified Code(s): E11.65 - Type 2 diabetes mellitus with hyperglycemia (4) Low back pain: Qualifiers: Back pain laterality: bilateral Chronicity: acute Sciatica laterality: bilateral sciatica Sciatica presence: with sciatica Qualified Code(s): M54.42 - Lumbago with sciatica, left side; M54.41 - Lumbago with sciatica, right side Plan This patient is completely an utterly uncooperative. I ordered physical therapy to work with her and she refused. She has refused to get out of bed. She will not be able to take care of her drain. She is completely noncompliant as evidenced by the fact that she has been sent to diabetic teaching, has not gone, has not taking her metformin and her hemoglobin A1c is greater than 11. She is a clear risk for renal failure, infectious disease, neuropathy, retinopathy, amputation, cerebrovascular disease, ischemic heart disease. Currently, it is completely unsafe to send her home. As such she is going to spend some additional time with us and I will get social work involved tomorrow to see how we can safely discharge this patient.
[2025-03-05] MEDS ORDERED: ACETAMINOPHEN 500 MG TABLET PO SCH (22:00)
[2025-03-06 06:19] LABS: HCT - HEMATOCRIT 35.0 % (37.0-47.0); HGB - HEMOGLOBIN 11.4 g/dL (12.0-16.0); MEAN PLATELET VOLUME 10.6 fL (7.9-10.8); PLT - PLATELET COUNT 147.0 10^3/uL (130-450); RED CELL DISTRIBUTION WIDTH 13.4 % (12.0-15.0)
[2025-03-06 06:36] LABS: BUN - BLOOD UREA NITROGEN 8.0 mg/dL (6-20); CARBON DIOXIDE - CO2 28.0 mmol/L (21-32); CREATININE 0.5 mg/dL (0.6-1.3); GFR - MDRD 133.0 (>89)
--- NOTE | 2025-03-06 08:25 | PROVIDER PROGRESS NOTE ---
Progress Note Progress Note Progress Note: General Surgery Progress Note Hospital Day # 3 - Acute appendicitis POD # 2, Laparoscopic appendectomy Code Status: Full ASSESSMENT: 1) S/P laparoscopic appendectomy - Progressing as expected 2) VTEP - SCD's 3) Hyperglycemia - on Metformin and reduced carb diet 4) Hypokalemia PLAN: 1) Advance diet as tolerated 2) Discontinue antibiotics after last dose today 3) Potassium replacement orally 4) Initiate chemical VTEP due to obesity, recent laparoscopy, limited mobility 5) Continue Metformin 6) Stop IV Acetaminophen and oral Hydrocodone/Acetaminophen; Begin PO Acetaminophen, Ibuprofen, Oxycodone prn 7) Social Service consult today to assess home situation 8) PT consult for post-op mobility assistance 9) Remove drain before discharge as there was no abscess, only turbid fluid. 10) If she tolerates a diet today she may be discharged to home. She tells me that she lives with her sister who can pick her up at the hospital. She will need continued out-patient management of her diabetes and a surgical follow-up appointment in 10-14 days. <><><><><> PERTINENT INTERVAL ISSUES: None S: Comfortable, cooperative, pre-op abdominal pain gone; Port site discomfort well controlled with oral medication; Has ambulated to the bathroom to urinate but has not been walking in the hallway OBJECTIVE: I/O: Porter 150 ml/24 yesterday; 70 ml so far today VS: BP 119/75; P 81; RR 18; T 36.9 EXAMINATION: MENTAL STATUS: AAO; Comfortable; Cooperative EYES: Pupils equal, round and reactive to light, sclera anicteric, EARS, NOSE, MOUTH, THROAT: Normal hearing, Oral mucous membranes moist and without lesions; NECK: No crepitus, lymphadenopathy, or thyromegaly LUNGS: Clear to auscultation without wheezing; No use of accessory muscles to breathe CARDIOVASCULAR: Heart-NSR without murmurs; ABD: Soft, non-distended, Port sites ckean and dry; + BS; Porter drain with clear serosanguinous fluid EXTREMITIES: No clubbing, cyanosis, infections SKIN: Anicteric; No rashes, lesions, ulcerations LABS: WBC 8.5K; H&H 11.4/35; PLT 147; NA 135; K 3.3; Cr 0.5; Glu 178 CULTURES: None pending IMAGING: None today ANTIMICROBIALS: Zosyn Day 2 PAIN CONTROL: Dilaudid IV prn, Vicodin PO prn, Acetaminophen IV VTEP: Chemical: None Mechanical: SCD Uriah Robbins MD, FACS General Surgery Service
[2025-03-06] MEDS: HEPARIN 5,000 UNIT/ML VIAL SUBQ SCH (08:54)
[2025-03-06] MEDS: IBUPROFEN 600 MG TABLET PO SCH (12:21)
[2025-03-06] MEDS: ACETAMINOPHEN 325 MG TABLET PO SCH (12:22)
--- NOTE | 2025-03-06 12:25 | PHARMACY PROGRESS NOTE ---
Best Possible Medication History Admit Date and Time: 03/05/251756 Home Medications Medication Instructions Recorded Confirmed Type cyclosporine 0.05 % eye drops in a 1 drp ophthalmic (e ye) Q12H #30 ea 11/19/24 03/04/25 Rx dropperette albuterol sulfate 90 mcg/actuation 2 puff inhalation Q 4-6H PRN SOA 12/12/24 03/04/25 Rx aerosol inhaler (ProAir HFA) #8.5 grams metformin 500 mg tablet 500 mg PO BID #180 tabs 0612/3103/04/25 Rx medroxyprogesterone 10 mg tablet 10 mg PO .COMPLEX #21 tabs 12/25/24 03/04/25 Rx cyclobenzaprine 5 mg tablet 5 mg PO BID PRN muscle spa sm #60 02/04/25 03/04/25 Rx tabs sertraline 50 mg tablet 50 mg PO QDAY #90 tabs 02/0403/04/25 Rx nystatin 100,000 unit/gram topical 1 applic topical BI D #30 grams 02/05/25 03/04/25 Rx cream carboxymethylcellulose sodium 1 % 2 drp ophthalmic (ey e) TID 03/05/25 03/05/25 History eye drops (Artificial Tears (carboxymethylcellulose)) Processed by: Pharmacy Medications reviewed in ED?: No Medication History completed: Yes Patient Interview: Completed [facility] Statement: As the person ultimately responsible for medication therapy, providers are able to order a medication from an existing home medication list in [facility] via the "Reconcile Routine" prior to Confirmation of that medication by it support technician. Such practice is discouraged except when the physician, in their clinical judgment, deems that a medical need exists for a medication without regard to previous use.
--- NOTE | 2025-03-06 13:47 | PT Plan of Care ---
PT Plan of Care Physical Therapy Plan of Care: Diagnosis Diagnosis acute appendicitis Diagnosis s/p lap appy 03/04/25 Referring Provider Michael Springer Patient Status Observation Chief Complaint Chief Complaint pain Onset of Chief Complaint [employer]NA[employer] Medical History (Updated 03/06/25 @ 04:18 by Gertrude Ware, RN) Acne PCOS (polycystic ovarian syndrome) Ependymoma Osteoarthritis Hypothyroid Depression Migraines Appendicitis Abdominal pain Spinal cord mass s/p resection by dr. Peña, Last MRI 01/2025 - stable. Repeat Lumbar, Thoacic MRI in 01/2026 Trichomonas vaginitis Lumbar radiculopathy, acute Back pain Mass of spine UTI (urinary tract infection) Leg swelling Elevated heart rate with elevated blood pressure without diagnosis of hypertension Oral lesion Surgical History (Updated 03/06/25 @ 04:18 by Gertrude Ware, [place]) Previous section H/O tubal ligation Personal history of spine surgery Balance/ Functional Results Sitting Balance Good Standing Balance Good Assessment Assessment Pt is a 44yo F referred for PT eval s/p lap appy performed 03/04/25. Today is POD2, cleared for eval by surgeon. Please see medical record for further PMH. Pt reports she is [place], lives with sister and has a lofstrand crutch she uses for mobility. Upon PT eval, met supine in bed and reports min to mod abdominal pain but willing to work with PT after extensive education on need for post-op mobility. Pain with mobility but able to transfer and ambulate approx. 30 with unilateral crutch and supervision overall. Gait pattern overall normal aside from slow malka. She does require assistance for donning socks/ lower body dressing d/t abdominal incisions and pain. Pt reports she will have some support from her sister when she returns home and states she feels capable of caring for herself upon dc. Pt does not have further acute PT need as she is at or near her baseline mobility. When medicall y clear, PT rec dc home with help from sister for lifting, ADLs and transportation. No further rehab needs anticipated. PT Plan of Care Frequency Evaluation only, no further P.T. Discharge Recommendations Discharge Location Previous Living Situation Support/Services Needed With assist Other has lofstrand crutch in room, does not req walker Transport Needs at Discharge Personal vehicle
[2025-03-06] MEDS: oxyCODONE 5 MG TABLET PO PRN (16:42)
--- NOTE | 2025-03-06 19:02 | PROVIDER PROGRESS NOTE ---
Subjective Prog Note Date Prog Note Date: 03/06/25 Prog Note Time: 18:55 Subjective Subjective: She just does not have the energy or the spirit to wanting to get out of bed. I was very sympathetic and explained that there are just times in our lives when our illness really is overwhelming. She does have a daughter and a sister at her home but they would not be able to take care of her. I did offer jail placement for respite care to when she could finally get safe enough to go home and she says that she is not that immobile and promises to get out of bed today. Current Medications Current Medications Current Medications: Current Medications Generic Name Dose Route Start Last Admin Trade Name Freq PRN Reason Stop Dose Admin Acetaminophen 650 mg 03/06/25 12:00 03/06/25 18:40 Acetaminophen 325 Mg Tablet PO 650 mg Q6HR SERENA Administration Albuterol 2.5 mg 03/05/25 13:40 Albuterol Neb 2.5 Mg/3 Ml INH RTQ4H PRN Wheezing Carboxymethylcellulose 1 drops 03/04/25 22:00 03/06/25 16:07 Carboxymethylcellulose Ophth Drops EACHEYE Not Given TID SERENA Cyclobenzaprine HCl 5 mg 03/04/25 21:28 03/05/25 20:26 Cyclobenzaprine 10 Mg Tablet PO 5 mg BID PRN Administration muscle spasm Heparin Sodium (Porcine) 5,000 unit 03/06/25 09:00 03/06/25 08:54 Heparin 5,000 Unit/Ml Vial SUBQ 5,000 unit BID SERENA Administration Hydromorphone HCl 0.5 mg 03/04/25 21:23 Hydromorphone 0.5 Mg/0.5 Ml Syringe IVP Q30M PRN Severe Breakthrough pain(7-10) Piperacillin Sod/Tazobactam 100 mls @ 200 mls/hr 03/04/25 22:00 03/06/25 16:58 Sod 3.375 gm/ Sodium Chloride IV 03/06/25 23:59 Infused Q6H SERENA Infusion Ibuprofen 600 mg 03/06/25 12:00 03/06/25 18:40 Ibuprofen 600 Mg Tablet PO 600 mg Q6HR SERENA Administration Insulin Human Lispro 1 - 5 unit 03/05/25 17:00 03/06/25 17:25 Insulin Lispro 300 Unit/3 Ml Pen SUBQ 2 unit 0800,1200,1700,2100 SERENA Administration Protocol Medroxyprogesterone Acetate 10 mg 03/04/25 22:00 Medroxyprogesterone 2.5 Mg Tablet PO .COMPLEX SERENA Nystatin 1 applic 03/05/25 09:00 03/06/25 12:15 Nystatin Cream 15 Gm Tube TOP 1 applic BID SERENA Administration Ondansetron HCl 4 mg 03/04/25 21:23 Ondansetron 4 Mg/2 Ml Vial IVP Q6HR PRN Nausea / Vomiting Oxycodone HCl 5 mg 03/06/25 08:46 03/06/25 16:42 Oxycodone 5 Mg Tablet PO 5 mg Q4HR PRN Administration Moderate Pain (Level 4-6) Patient Own Med ( 1 each 03/05/25 08:00 03/06/25 08:51 Cyclosporine 0.05 % EACHEYE Not Given Dropperette) Q12H SERENA Potassium Chloride 20 meq 03/07/25 08:00 Potassium Chloride 20 Meq Tablet PO DAILYWM SERENA Sertraline HCl 50 mg 03/05/25 09:00 03/06/25 08:51 Sertraline 50 Mg Tablet PO 50 mg DAILY SERENA Administration Objective Vital Signs/Intake & Output Reviewed Vital Signs: Yes Vital Signs: Vital Signs x48h Temp Pulse Resp BP Pulse Ox 03/06/25 16:18 37.1 C 78 20 121/82 93 03/06/25 12:11 37.0 C 85 17 132/88 H 92 Intake & Output: Intake & Output 03/03/25 03/04/25 03/05/25 03/06/25 23:59 23:59 23:59 23:59 Intake Total 6800 / 6800 1240 / 1240 480 / 480 Output Total 310 / 310 1000 / 1000 490 / 490 Balance 6490 / 6490 240 / 240 -10 / -10 Weight (kg) 119.4 kg Objective General Appearance: positive No acute distress, Alert and Other (Short statured, 5 foot 4 inch, 119.4 kg, BMI 45.2.) Eyes Bilateral: positive PERRL and EOMI ENT: positive Pharynx nml and No signs of dehydration Neck: positive Thyroid nml and No JVD; negative Stiff neck or Carotid bruit Respiratory: positive Chest non-tender, No respiratory distress and Breath sounds nml Cardiovascular: positive Regular rate & rhythm, No murmur and No gallop Abdomen: positive No organomegaly, Nml bowel sounds and Tenderness (Epigastrium, umbilicus, right lower quadrant. But no rebound or grimacing. Drain in place.) Skin: positive Color nml Extremities: positive Non-tender, Full ROM and Nml appearance Neurologic/Psychiatric: positive Oriented x3, CN's nml (2-12), Motor nml and Depressed mood/affect Lab Results 03/06/25 06:00 03/06/25 06:00 Other Labs: Lab Results x24hrs 03/06/25 03/06/25 03/06/25 Range/Units 16:49 11:48 07:40 WBC (4.8-10.8) x10^3/uL RBC (4.20-5.40) 10^6/uL Hgb (12.0-16.0) g/dL Hct (37.0-47.0) % MCV (81.0-99.0) fL MCH (27.0-31.0) pg MCHC (32.0-36.0) g/dL RDW (12.0-15.0) % Plt Count (130-450) 10^3/uL MPV (7.9-10.8) fL Sodium (135-145) mmol/L Potassium (3.5-4.5) mmol/L Chloride (101-111) mmol/L Carbon Dioxide (21-32) mmol/L Anion Gap (6-13) BUN (6-20) mg/dL Creatinine (0.6-1.3) mg/dL Estimated GFR (MDRD) (>89) Glucose (74-104) mg/dL POC Whole Bld Glucose 196 167 173 (70-100) mg/dL Calcium (8.5-10.3) mg/dL Magnesium (1.7-2.3) mg/dL 03/06/25 03/05/25 Range/Units 06:00 20:27 WBC 8.5 (4.8-10.8) x10^3/uL RBC 3.86 L (4.20-5.40) 10^6/uL Hgb 11.4 L (12.0-16.0) g/dL Hct 35.0 L (37.0-47.0) % MCV 90.7 (81.0-99.0) fL MCH 29.5 (27.0-31.0) pg MCHC 32.6 (32.0-36.0) g/dL RDW 13.4 (12.0-15.0) % Plt Count 147 (130-450) 10^3/uL MPV 10.6 (7.9-10.8) fL Sodium 135 (135-145) mmol/L Potassium 3.3 L (3.5-4.5) mmol/L Chloride 104 (101-111) mmol/L Carbon Dioxide 28 (21-32) mmol/L Anion Gap 3.0 L (6-13) BUN 8 (6-20) mg/dL Creatinine 0.5 L (0.6-1.3) mg/dL Estimated GFR (MDRD) 133 (>89) Glucose 178 H (74-104) mg/dL POC Whole Bld Glucose 197 (70-100) mg/dL Calcium 8.2 L (8.5-10.3) mg/dL Magnesium 2.0 (1.7-2.3) mg/dL Assessment/Plan Problem List (1) Acute metabolic encephalopathy: Impression: Improving. Patient does have psychomotor slowing, and is lethargic at times. When spoken with, she needs reprompting and redirecting and falls asleep midsentence. She attributes this to not being able to sleep all night. ABG was completed, and does not show any CO2 retention. No focal deficits to elicit a head CT at this time. She continues to be tired, but was awake, alert and responsive to me. Initially turned her face away and closed her eyes. When I expressed my sympathy at her tiredness and fatigue in the plan for transfer to jail, she immediately opened her eyes, sat up and got out of bed. PT did see her today. They endorsed the fact that she is hypoverbal. At home she is a mod assist and lives with her sister and uses a crutch for mobility. She was able to transfer and ambulate 30 feet with unilateral crutch and supervision overall here. Gait pattern overall normal except for slow malka. She does need help with putting on her socks and shoes. PT feels that she does not have any further acute PT needs that she is out of her near her baseline. She should be able to go home and get help from sister for lifting, ADLs and transportation. No further rehab needs anticipated.. Hopefully discharge tomorrow morning.Surgery is worried because she may not be able to take care of her drain. (2) SUELLEN (generalized anxiety disorder): Impression: Continue sertraline, which was started by her PCP on 02/04 for her generalized anxiety. (3) Diabetes mellitus with hyperglycemia: Impression: Her A1c is 11%. She is supposed to be on metformin in the outpatient setting, but she said she has not been taking it for months. When asked why, she is not able to quantify it. Her dietitian spoke with her, and counseled her, she had referral to the program last year but did not attend. I do not believe she will be able to handle taking insulin at home. Will start with just metformin, dietary changes on discharge. She will need very close follow-up with her PCP in the outpatient setting. She was also heavily encouraged to continue with the diabetic program offered here at this hospital. Qualifiers: Diabetes mellitus type: type 2 Diabetes mellitus half-way insulin use: without rodent exterminator use Qualified Code(s): E11.65 - Type 2 diabetes mellitus with hyperglycemia (4) Low back pain: Impression: Continue Tylenol versus Motrin at home, as she has been doing. Spine stimulator in place. Qualifiers: Back pain laterality: bilateral Chronicity: acute Sciatica laterality: bilateral sciatica Sciatica presence: with sciatica Qualified Code(s): M54.42 - Lumbago with sciatica, left side; M54.41 - Lumbago with sciatica, right side (5) Appendicitis: Impression: Patient presented with abdominal pain. CT abdomen indicative of possible appendicitis. Outside records reviewedshe [facility] to 01/03[facility]2024. It was managed nonoperatively with IV Zosyn, and she was discharged home on Augmentin. This time, she was taken to the OR. Lap appe was completed on 03/04. Pain is well managed with Tylenol and [place] as needed. She has not required Dilaudid Since yesterday After surgery, even prior, patient was very lethargic. She states that she is very tired. She is having a hard time getting out of bed. Seen by PT today. Plan is discharge tomorrow. Surgery expresses concern that she may not be able to take care of her drain correctly. She is at high risk for abscess. I pointed out that if she goes home and the drain is not managed correctly she will get an abscess. I also pointed out that if she stays here without a drain, she is at high risk for abscess. Qualifiers: Acute appendicitis type: with generalized peritonitis Appendicitis abscess presence: unspecified whether abscess present Appendicitis gangrene presence: unspecified whether gangrene present Appendicitis perforation presence: unspecified whether perforation present Appendicitis type: acute appendicitis Qualified Code(s): K35.209 - Acute appendicitis with generalized peritonitis, without abscess, unspecified as to perforation
[2025-03-07] MEDS: POTASSIUM CHLORIDE 20 MEQ TABLET PO SCH (08:14)
--- NOTE | 2025-03-07 08:14 | PROVIDER PROGRESS NOTE ---
Progress Note Progress Note Progress Note: General Surgery Progress Note Hospital Day # 4 - Acute appendicitis POD # 3, Laparoscopic appendectomy Code Status: Full ASSESSMENT: 1) S/P laparoscopic appendectomy - Progressing well; Ready for discharge PLAN: 1) Reduced carb diet 2) Remove drain - done 3) Discharge to home 4) Follow-up General Surgery Clinic in 10-14 days 5) Continue hypoglycemics 6) Discharge instructions: Diet: As tolerated Activity: Be active, but remember, if it hurts to do, don't do it Meds: Use all regular meds as usual For pain control: Tylenol 650 mg orally 4 x a day for next 3 days, then 4 x a day as needed Ibuprofen 400 mg orally 3 x a day with meals for the next 3 days, then 3 x a day with meals as needed Antibiotics - none Wound Care: Leave the gauze on the lower right wound for 24 hours. Then you may remove it and shower. Follow-up: General Surgery clinic in 7-14 days or sooner as needed. Our clinic staff will contact you for an appointment date. Call the clinic at with questions or concerns <><><><><> PERTINENT INTERVAL ISSUES: None S: Comfortable, cooperative, slept well; Minimal port site discomfort OBJECTIVE: I/O: Porter 65 ml/24 VS: BP 139/85; P 84; RR 17; T 36.7 EXAMINATION: MENTAL STATUS: AAO; Comfortable; Cooperative EYES: Pupils equal, round and reactive to light, sclera anicteric, EARS, NOSE, MOUTH, THROAT: Normal hearing, Oral mucous membranes moist and without lesions; NECK: No crepitus, lymphadenopathy, or thyromegaly LUNGS: Clear to auscultation without wheezing; No use of accessory muscles to breathe CARDIOVASCULAR: Heart-NSR without murmurs; ABD: Soft, non-distended, Port sites clean and dry; + BS; Porter drain with clear serosanguinous fluid - removed EXTREMITIES: No clubbing, cyanosis, infections SKIN: Anicteric; No rashes, lesions, ulcerations LABS: Glu 146 CULTURES: None pending IMAGING: None today ANTIMICROBIALS: Zosyn Day 3 PAIN CONTROL: Dilaudid IV prn, Vicodin PO prn, Acetaminophen IV VTEP: Chemical: None Mechanical: SCD Uriah Robbins MD, FACS General Surgery Service
[2025-03-07 08:29] LABS: BUN - BLOOD UREA NITROGEN 9.0 mg/dL (6-20); CARBON DIOXIDE - CO2 29.0 mmol/L (21-32); CREATININE 0.5 mg/dL (0.6-1.3); GFR - MDRD 133.0 (>89)
[2025-03-07] MEDS: ALBUTEROL NEB 2.5 MG/3 ML INH PRN (08:41)
--- NOTE | 2025-03-07 09:30 | Discharge Summary ---
"Discharge Summary Admit Date: 03/04/25 Discharge Date: 03/07/25 Discharging Provider: Chandrika Ortega MD Primary Care Provider: Daisy Payne MD Code Status: Attempt Resuscitation DIAGNOSES Discharge Diagnoses with Status of Each Condition: 1. Appendicitis 2. Acute metabolic encephalopathy 3. Generalized anxiety disorder 4. Type 2 diabetes mellitus, with hyperglycemia, without long-term use of insulin. 5. Chronic low back pain HPI History of Present Illness: Patient is a 44-year-old female with a history of generalized anxiety disorder, chronic lower back pain with a spinal mass that was recently removed, who presents with abdominal pain, and her right lower quadrant. Patient states that she started having the pain last night. It starts in her right lower quadrant, and then sometimes can radiate throughout the whole abdomen. She endorses nausea. She denies any fevers or chills. During our conversation, she is falling asleep. When asked why, she wakes up and says that she did not get any sleep last night. She does not endorse any shortness of breath. She does not have any known history of heart failure or any heart problems. In terms of past medical history, she endorses anxiety and her chronic lower back issues, as well as intermittent asthma, for which she very rarely uses her albuterol inhaler. She takes sertraline for this. She lives with her daughter. She denies any alcohol, tobacco, recreational drug use. Besides a spine stimulator, she does not recall any surgeries. In the ER, she is afebrile, blood pressure between 130-146 systolic. She is slightly tachycardic in the low 1 teens to 120s range. She has some tachypnea noted, but improves with conversation. She is saturating 96% on 2 L. Lab work shows normal white count. ABG is largely unremarkable. Potassium is low at 3.3. CT abdomen/pelvis shows acute appendicitis involving a retrocecal appendix, with dilatation and inflammatory changes, as well as a distended gallbladder. Chest x-ray shows mild interstitial pulmonary edema and cardiomegaly. General surgery was consultedthey are reordering CT scan of the abdomen pelvis with oral contrast. Plan is for NG tube placement for this contrast. CONSULTS | PROCEDURES Procedures: Abdomen pelvis CT has acute appendicitis involving the retrocecal appendix. Cannot exclude early rupture. Appendix is quite dilated and significant inflammatory changes. Mild hepatomegaly. Distended gallbladder. Nonspecific finding. A repeat CT was done because of normal white cell count. Same findings consistent with acute appendicitis and developing ileus pattern. Chest x-ray was with cardiomegaly. Questionable mild interstitial pulmonary edema. Patchy bibasilar atelectasis. Laparoscopic appendectomy with drain placement, abdominal washout done on March 04 HOSPITAL COURSE Hospital Course: The patient continued to be afebrile in the postoperative settings. Vital signs were normal. She was initially on Zosyn for 2 days but had a normal white cell count throughout the admission and that was stopped. She was very, very, very slow to move. Almost seemed encephalopathic. But she had no focal deficits, and was alert and oriented to person place and time and able to follow commands. Almost seemed anhedonic or severely depressed. General surgery was worried that she may not be able to take care of herself at home. We finally became concerned enough to suggest that she may need to go to a chcf since she was reluctant to get out of bed. With that, she stated that she could get out of bed and demonstrated it by immediately sitting up from a supine to sitting position, supine to standing position. Drain was removed March 07. She was anywhere between no food to 75% of her food depending on her appetite. Glucose was initially 211 on admission and was fasting 146 by the day of discharge. Blood pressure was stable between 120s and 130s systolic. She is discharged in stable condition. Instructions from general surgery and discharge plan for patient. She is alert and oriented to person, place, time and situation. Temperature is 36.5. Heart rate 76. Respirations 18. Blood pressure 136/75. Pulse 91. She is 5 foot 4 inches tall, 119.4 kg, up 45.2 kg. Supple neck. Clear lungs. No increased respiratory effort with walking or talking. Regular rate and rhythm. An abdomen that is soft, tender over umbilicus and right lower quadrant but minimally so. No rebound or guarding. Drain was in place and now removed. Bandage in place. Extremities with trace edema. She is able to ambulate without ataxia or assist. Greater than 30 minutes was spent coordinating discharge This document was made in part using voice recognition software. While efforts are made to proofread this document, sound alike and grammatical errors may occur. ALLERGIES Allergies Allergy/AdvReac Type Severity Reaction Status Date / Time No Known Drug Allergies Allergy Verified 03/04/25 05:39 MEDICATIONS Ambulatory Orders Medication Instructions Recorded Confirmed cyclosporine 0.05 % eye drops in a 1 drp ophthalmic (e ye) Q12H #30 ea 11/19/24 03/04/25 dropperette albuterol sulfate 90 mcg/actuation 2 puff inhalation Q 4-6H PRN SOA 12/12/24 03/04/25 aerosol inhaler (ProAir HFA) #8.5 grams metformin 500 mg tablet 500 mg PO BID #180 tabs 06/12/3103/04/25 medroxyprogesterone 10 mg tablet 10 mg PO .COMPLEX #21 tabs 12/25/24 03/04/25 cyclobenzaprine 5 mg tablet 5 mg PO BID PRN muscle spa sm #60 02/04/25 03/04/25 tabs sertraline 50 mg tablet 50 mg PO QDAY #90 tabs 02/0403/04/25 nystatin 100,000 unit/gram topical 1 applic topical BI D #30 grams 02/05/25 03/04/25 cream carboxymethylcellulose sodium 1 % 2 drp ophthalmic (ey e) TID 03/05/25 03/05/25 eye drops (Artificial Tears (carboxymethylcellulose)) PHYSICAL EXAM AT DISCHARGE Vital Signs: Vital Signs x48h Temp Pulse Pulse Resp BP Pulse Ox 03/07/25 08:43 76 18 03/07/25 08:13 36.5 C 80 18 136/75 H 91 L 03/07/25 05:00 36.7 C 84 17 139/85 H 92 LABS 03/06/25 06:00 03/07/25 08:10 Discharge Plan Discharge Patient Disposition: 01 Home, Self Care Condition: Fair Medically Cleared Date:: 03/07/25 Prescriptions: Continued cyclosporine 0.05 % dropperette 1 drp ophthalmic (eye) Q12H Qty: 30 2RF albuterol sulfate [ProAir HFA] 90 mcg/actuation HFA aerosol inhaler 2 puff inhalation Q4-6H PRN (Reason: SOA) Qty: 8.5 3RF metformin 500 mg tablet 500 mg PO BID Qty: 180 3RF medroxyprogesterone 10 mg tablet 10 mg PO .COMPLEX Qty: 21 3RF Rx Instructions: 10 mg orally Qday for seven days each month; nystatin 100,000 unit/gram cream 1 applic topical BID Qty: 30 2RF Patient Comments: APPLY SMALL AMOUNT TOPICALLY TO THE AFFECTED AREA TWICE DAILY Artificial Tears (cmc) 1 % drops 2 drp ophthalmic (eye) TID Rx Instructions: into left eye sertraline 50 mg tablet 50 mg PO QDAY Qty: 90 1RF cyclobenzaprine 5 mg tablet 5 mg PO BID PRN (Reason: muscle spasm) Qty: 60 1RF Activity Restrictions/Additional Instructions: Diet: As tolerated Activity: Be active, but remember, if it hurts to do, don't do it Meds: Use all regular meds as usual For pain control: Tylenol 650 mg orally 4 x a day for next 3 days, then 4 x a day as needed Ibuprofen 400 mg orally 3 x a day with meals for the next 3 days, then 3 x a day with meals as needed Antibiotics - none Wound Care: Leave the gauze on the lower right wound for 24 hours. Then you may remove it and shower. Follow-up: General Surgery clinic in 7-14 days or sooner as needed. Our clinic staff will contact you for an appointment date. Call the clinic at with questions or concerns Diet: Diabetic Health Concerns: You were admitted because of abdominal pain. Most of it was in the right lower quadrant of your abdomen. A CAT scan was not very easy to read for us and it could not distinctively tell us if you are having appendicitis or not. You do not have a fever, your vital signs were normal. But you did need a little bit of oxygen. The surgeon took you to the operating room and he did find you to have appendicitis which needed to be removed. After surgery, it took quite a bit of energy to move. You wanted to sleep all the time. You really did not want to get out of bed. We were very alarmed because we felt that if you did not improve, you would have to be placed in a chcf for care. You were finally able to get out of bed and move around on March 06. General surgery removed the drain March 07. Please resume a diabetic diet. Please see your primary care provider in follow-up in the next 2 weeks to make sure your sugar is staying stable Please make sure you walk 15 to 20 minutes a day, daily. Print Language: [place]raini Patient Instructions: After an Appendectomy Follow-up Care: Michael Springer MD [Provider Admit Priv/Credential, Surgery, General] Daisy Payne MD [Provider Admit Priv/Credential, Family Practice] Vitals documented within 30 minutes of discharge?: Yes"
[2025-03-07 10:47] VITALS: BP 127/78; TEMP 98.8; O2SAT 92
== END 2025-03-07 10:30 | disposition home or self-care (01) ==
LOC: ED 05:30 → MS3 19:05 → SDS 19:05 → MS3 20:41
PROVIDERS: ADMIT Internal Medicine; ATTEND Surgery
DX: E87.6 Hypokalemia; E11.65 Type 2 diabetes mellitus with hyperglycemia; R09.02 Hypoxemia; G93.41 Metabolic encephalopathy; H57.89 Other specified disorders of eye and adnexa; J45.20 Mild intermittent asthma, uncomplicated; K35.209 Acute appendicitis with generalized peritonitis, without abscess, unspecified as to perforation; M54.41 Lumbago with sciatica, right side; Z96.82 Presence of neurostimulator; M54.42 Lumbago with sciatica, left side; G89.29 Other chronic pain; F41.1 Generalized anxiety disorder; E66.01 Morbid (severe) obesity due to excess calories; Z79.899 Other long term (current) drug therapy; Z68.42 Body mass index [BMI] 45.0-49.9, adult; Z79.84 Long term (current) use of oral hypoglycemic drugs